=== PATIENT | male | born 1970 | race Caucasian/White ===

== ENCOUNTER 2023-05-10 14:11 | Emergency (ER) | payer MEDICAID, SELFPAY ==
[2023-05-10 14:21] VITALS: BP 138/74
--- NOTE | 2023-05-10 15:56 | ED.SKININJ ---
HPI-Injury
General
Chief Complaint: Skin Surface Trauma
Source: patient
Exam Limitations: none
Time Seen by Provider: 05/10/23 15:05
Nursing documentation reviewed up to this point in time: agreed with
Travel History
Have you had any contact with someone who has COVID-19?: No
Do you have any symptoms of coronavirus? Fever > 100 degrees, chills, cough, shortness of breath, sore throat, loss of taste or smell, muscle aches, or headache?: No
History of Present Illness-Injury
Is this injury a work related problem?: No
Is pt an associate of [facility]?: No
Initial Injury comments:
Accidentally cut self with knife. Laceration to volar aspect of right forearm. 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
Past History
Past History
ED Past Medical History: None
ED Past Surgical History: None
Review of Systems
Review of Systems
Allergies reviewed?: Yes
All Other Systems: ROS reviewed and negative except as documented in HPI and ROS
Constitutional: Reports no symptoms
Musculoskeletal: Reports no symptoms
Skin: Reports other (Laceration to right volar forearm)
Neurological: Reports no symptoms
Psychiatric: Reports no symptoms
Skin Exam
Laceration
Right volar forearm:
Orientation: horizontal
Type of Laceration: simple
Any active bleeding?: no active bleeding
Distal skin color and temperature: normal-warm & good color
Normal distal neurovascular exam: Yes
Range of motion: full
Phy Exam
General Physical Exam
General Presentation: well appearing
General age: appears stated age
General Skin: warm and dry
General Habitus: normal
General Mental: alert
Musculoskeletal Exam
Musculoskeletal Exam: full ROM and neuro vasc intact
Skin Exam
Skin Exam: normal color, warm/dry and no rash
Psychiatric Exam
Psychiatric Exam: normal mood/affect
Course
Orders/Labs/Results
Orders:
Orders
05/10/23 15:56
Tetanus/Diphth/Acelpertussis [Adacel] 0.5 ml IM .ONCE ONE
Vital Signs
Initial and Last Documented VS:
Initial Vital Signs
Temp Pulse Resp BP Pulse Ox
98.9 F 70 16 138/74 98
05/10/23 14:21 05/10/23 14:21 05/10/23 14:21 05/10/23 14:21 05/10/23 14:21
Last Documented Vital Signs
Temp Pulse Resp BP Pulse Ox
98.9 F 70 16 138/74 98
05/10/23 14:21 05/10/23 14:21 05/10/23 14:21 05/10/23 14:21 05/10/23 14:21
Procedures
Laceration Closure
Right volar forearm:
Status of Wound: clean
Size of Wound in cm: 3
Description of Wound Edges: sharp
Preparation: cleaned with saline
Anesthesia: 1% Lidocaine
Revision/Debridement: routine- no revision
Wound exploration: explored to base- no FB
Type of Closure: single layer closure
Skin Closure Material: 4-0 prolene and 4-0 vicryl
*Critical Care Note
Total Time (30-74mins, 75-104mins- exclusive of procedures): Not Applicable
ED Attending Note
-
Portions of this chart may have been created with voice recognition software.� Occasional wrong word or��sound alike� substitutions may have occurred due to the inherent limitations of voice recognition software.
Discharge Plan
Departure
Patient Disposition: Home (Routine Discharge)
Date of Disposition: 05/10/23
Time of Disposition: 16:00
Patient with high blood pressure during this ER visit?: No
Condition: Good
Covid-19: Not Applicable
Discharge Problem:
Laceration of forearm
Instructions: Laceration Repair With Stitches (DC)
Referrals:
Anthony Barcenas MD [Family Provider] - Follow up in 1 week (Sutures can be removed in 7-10 days.)
Interventions
Interventions:
*Risk Screen - Suicide Last Done: 05/10/23 14:21
*General Assessment Last Done: 05/10/23 14:21
*Neglect/Abuse Screening Last Done: 05/10/23 14:21
ED- Fall Risk Assessment Last Done: 05/10/23 14:56
ED-Skin Assessment Last Done: 05/10/23 14:56
[2023-05-10] MEDS: ADACEL 0.5 ML IM (16:02)
[2023-05-10 16:26] VITALS: BP 119/72
[2023-05-10 16:27] VITALS: BP 119/72
--- NOTE | 2023-05-10 16:27 | EDRN ---
Reviewed discharge instructions with patient. Verbalized understanding. Ambulated with steady gait to the lobby.
== END 2023-05-10 16:25 | disposition home or self-care (01) ==
LOC: EMR 14:11
PROVIDERS: EMERGENCY PHYSICIAN Emergency Medicine; FAMILY PHYSICIAN Family Medicine
DX: S51.811A Laceration without foreign body of right forearm, initial encounter (principal); W26.0XXA Contact with knife, initial encounter; Z23 Encounter for immunization
CPT/HCPCS: 99284; 12032; 90471; 90715

== ENCOUNTER 2023-06-17 16:27 | Inpatient (IN) | payer MEDICAID, SELFPAY ==
[2023-06-17] VITALS (16 sets, daily range): BP systolic 108–136; BP diastolic 63–81; BMI 23.0; BMI 21.8
[2023-06-17 13:45] LABS: % Basophils 0.1 % (0-2); % Immature Granulocytes 0.8 % (0-0.5); % Lymphocytes 27.2 % (20.5-51.1); % Monocytes 9.2 % (1.7-9.3); % Neutrophils 62.7 % (42.2-75.2); Absolute Immature Granulocytes 0.1 10^3/uL (0-0.05); Absolute Monocytes 0.7 10^3/uL (0.1-0.6); Absolute Neutrophils 4.7 10^3/uL (1.4-6.5); Mean Corp Hgb Conc. 36.6 g/dL (33.0-37.0); Mean Corpuscular Hgb 30.6 pg (27.0-31.0); Mean Corpuscular Volume 83.4 fL (80.0-94.0); Mean Platelet Volume 12.4 fL (7.4-10.4); Nucleated Red Blood Cells % 0 % (-); Red Blood Cell Count 1.93 10^6/uL (4.70-6.10); Red Cell Dist. Width 12.7 % (11.5-14.5); White Blood Cell Count 7.4 10^3/uL (4.8-10.8)
[2023-06-17 13:54] LABS: ALT (SGPT) 46 U/L (0-50); AST (SGOT) 30 U/L (17-59); Albumin 4.2 g/dl (3.5-5.0); Alkaline Phosphatase 107 U/L (38-126); Blood Urea Nitrogen 34 mg/dl (9-20); Calcium 8.9 mg/dl (8.4-10.2); Carbon Dioxide 18 mmol/L (22-30); Chloride 100 mmol/L (98-107); Glucose 150 mg/dl (70-99); Sodium 132 mmol/L (135-145); Total Bilirubin 1.8 mg/dl (0.2-1.3); Total Protein 7.4 g/dl (6.3-8.2); eGFR > 60.00
[2023-06-17 13:57] LABS: Hemoglobin 5.9 g/dL (13.0-18.0)
[2023-06-17 13:58] LABS: Hematocrit 16.1 % (39.0-52.0); Platelet Count 7 10^3/uL (130-400)
[2023-06-17 13:59] LABS: Potassium 4.4 mmol/L (3.5-5.1)
[2023-06-17 14:06] LABS: Troponin I < 0.012 ng/ml
--- NOTE | 2023-06-17 15:11 | ED.GENMED ---
History of Present Illness
<Timothy Becerra PA-C - Last Filed: 06/17/23 18:37>
General
Chief Complaint: Breathing Problem
Time Seen by Provider: 06/17/23 14:05
Travel History
Have you had any contact with someone who has COVID-19?: No
Do you have any symptoms of coronavirus? Fever > 100 degrees, chills, cough, shortness of breath, sore throat, loss of taste or smell, muscle aches, or headache?: No
History of Present Illness
History of Present Illness:
53-year-old male presents the emergency department for evaluation of shortness of breath, dyspnea on exertion, and fatigue ongoing for the past week. 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
past 1 to 2 months but really severe in the past week. He did have some nausea and vomiting this morning. 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 He denies any
back or abdominal pain, has any fevers but does feel cold all the time. No chest pain or shortness of breath. Denies any recent international travel, recent febrile illnesses, or recent tick bites.
Past History
<Timothy Becerra PA-C - Last Filed: 06/17/23 18:37>
Past History
ED Past Medical History: None
ED Past Surgical History: None
Review of Systems
<Timothy Becerra PA-C - Last Filed: 06/17/23 18:37>
Review of Systems
Allergies reviewed?: Yes
All Other Systems: ROS reviewed and negative except as documented in HPI and ROS
Phy Exam
<Timothy Becerra PA-C - Last Filed: 06/17/23 18:37>
Physical Exam
Physical Exam:
GEN: Markedly pale, no immediate distress
Eyes: PERRLA, EOMs intact, no scleral icterus
HENT: NCAT, oral mucosa moist, no JVD, no cervical adenopathy.
Lungs: CTAB, no wheezes, rales, rhonchi, normal chest wall excursion
Cardiac: RRR, no M/R/G, no peripheral edema. Radial pulses 2+ bilat
Abdomen: S, NT, ND, NABS, no masses or hepatosplenomegaly
: Brown stool in the rectal vault, weakly heme positive
Neuro: AO x 3
MSK: No gross deformity or ecchymosis. No edema. No digital clubbing
Skin: Diffuse pallor. Few petechial lesions to bilateral cheeks as well as bilateral scapular back
Psych: Calm, cooperative, proper hygiene
Scores
<Timothy Becerra PA-C - Last Filed: 06/17/23 18:37>
Heart Failure Risk
Heart Failure Risk Score: Not Applicable
Course
<Timothy Becerra PA-C - Last Filed: 06/17/23 18:37>
Orders/Labs/Results
Orders:
Orders
06/17/23 Breakfast
Regular
At Your Request: Full Participation
06/17/23 13:26
Electrocardiogram (*1) Urgent
Reason for Study: Shortness of Breath
06/17/23 13:32
Complete Blood Count/With Diff Urgent
Comprehensive Metabolic Panel Urgent
Direct Bilirubin Urgent
Comment: ADD ON
Ferritin Urgent
Comment: ADD ON
Folate Urgent
Comment: ADD ON
Iron Urgent
Comment: ADD ON
LDH Urgent
Comment: ADD ON
Reticulocyte Count Urgent
Comment: ADD ON
Total Iron Binding Urgent
Comment: ADD ON
Troponin I Urgent
Vitamin B12 Urgent
Comment: ADD ON
06/17/23 14:20
Type+Screen Urgent
06/17/23 14:51
PT/INR [Prothrombin Time] Urgent
PTT Urgent
06/17/23 14:54
Blood Bank Products [* Blood Bank Products] Urgent
Blood Bank Products: *Packed RBC Leuko(PRBC's)
Quantity: 2
Transfuse Today: Yes
Reason: Anemia
06/17/23 15:31
Pantoprazole [Protonix IV] 40 mg IV NOW STA
06/17/23 15:32
Add On- LAB Urgent
Tests Added?: iron, TIBC, ferritin
06/17/23 15:36
CR Chest - 2 Views Urgent
Comment:
Reason For Exam: SOB
06/17/23 15:37
Add On- LAB Urgent
Tests Added?: iron, ferritin, tibc, folate, vit b12
Blood Bank Products [* Blood Bank Products] Urgent
Blood Bank Products: *Plt Single Donor Leuko
Quantity: 1
Transfuse Today: Yes
Reason: Thrombocytopenia
06/17/23 15:44
Add On- LAB Urgent
Tests Added?: LDH, retic count
06/17/23 16:03
Admit/Transfer Patient As Directed
Co-Sign Provider:
Level of Care: Inpatient admission
Assign to:: Telemetry
Physician / Group: Jose M
Diagnosis: Anemia/Thrombocytopenia
Reason for Telemetry: Arrhythmia
Date to Stop Telemetry: 06/20/23
Time to Stop Telemetry: 11:00
Reason for Hospitalization: blood transfusion, hematology work-up
Expected length of stay greater than two midnights?: Yes
ELOS- Estimated Length of Stay in days: 3
I certify the patient meets the requirements for IP care: Yes
06/17/23 16:09
Code Status As Directed
Resuscitation Status: Full Code
06/17/23 16:12
Add On- LAB Urgent
Tests Added?: haptoglobin
06/17/23 16:23
Add On- LAB Urgent
Tests Added?: direct and indirect bilirubin
06/17/23 17:00
Acetaminophen [Tylenol] 650 mg PO Q4HPRN PRN
06/17/23 17:00
HEMATOLOGY CONSULT Routine
Consulting Provider: Mary Bahena
Was physician already notified: Yes
Activity As Directed
Activity Level: Out of Bed- Chair
I&O [Intake/ Output] As Directed
Frequency: q12h
Pneumatic Compression Sleeves As Directed
Type: Knee high
Vital Signs As Directed
Frequency: Per unit guidelines
Weight As Directed
Frequency: Daily
DX Deep Vein Thrombosis Video Routine
06/18/23 06:00
Complete Blood Count/With Diff IN AM
Comprehensive Metabolic Panel IN AM
INR [Prothrombin Time] IN AM
Magnesium IN AM
TSH Reflex To Free T4 IN AM
06/18/23 08:00
Pantoprazole [Protonix] 40 mg PO DAILY
06/20/23 11:00
DC Protocol for Telemetry ONCE
Abnormal Lab Results
06/17/23 06/17/23 06/17/23
13:32 14:20 14:51
RBC 1.93 L 10^6/uL
(4.70-6.10)
Hgb 5.9 L* g/dL
(13.0-18.0)
Hct 16.1 L* %
(39.0-52.0)
Plt Count 7 L* 10^3/uL
(130-400)
MPV 12.4 H fL
(7.4-10.4)
Abs Immat Gran (auto) 0.1 H 10^3/uL
(0-0.05)
Absolute Monos (auto) 0.7 H 10^3/uL
(0.1-0.6)
Immature Gran % 0.8 H %
(0-0.5)
PT 17.0 H Sec
(11.4-14.6)
APTT 37.1 H Sec
(23.4-35.0)
Sodium 132 L mmol/L
(135-145)
Carbon Dioxide 18 L mmol/L
(22-30)
BUN 34 H mg/dl
(9-20)
Creatinine 1.4 H mg/dL
(0.7-1.3)
Glucose 150 H mg/dl
(70-99)
TIBC 188 L ug/dl
(261-462)
Total Bilirubin 1.8 H mg/dl
(0.2-1.3)
Lactate Dehydrogenase 368 H U/L
(120-246)
Crossmatch IS Only See Detail
06/17/23 13:32
06/17/23 13:32
Vital Signs
Initial and Last Documented VS:
Initial Vital Signs
Temp Pulse Resp BP Pulse Ox
97.6 F 107 18 120/81 100
06/17/23 13:21 06/17/23 13:21 06/17/23 13:21 06/17/23 13:21 06/17/23 13:21
Last Documented Vital Signs
Temp Pulse Resp BP Pulse Ox
99.1 F 78 18 108/71 100
06/17/23 19:02 06/17/23 19:02 06/17/23 19:02 06/17/23 19:02 06/17/23 16:59
<Chavez Garcia DO - Last Filed: 06/17/23 19:43>
Orders/Labs/Results
Orders:
Orders
06/17/23 Breakfast
Regular
At Your Request: Full Participation
06/17/23 13:26
Electrocardiogram (*1) Urgent
Reason for Study: Shortness of Breath
06/17/23 13:32
Complete Blood Count/With Diff Urgent
Comprehensive Metabolic Panel Urgent
Direct Bilirubin Urgent
Comment: ADD ON
Ferritin Urgent
Comment: ADD ON
Folate Urgent
Comment: ADD ON
Iron Urgent
Comment: ADD ON
LDH Urgent
Comment: ADD ON
Reticulocyte Count Urgent
Comment: ADD ON
Total Iron Binding Urgent
Comment: ADD ON
Troponin I Urgent
Vitamin B12 Urgent
Comment: ADD ON
06/17/23 14:20
Type+Screen Urgent
06/17/23 14:51
PT/INR [Prothrombin Time] Urgent
PTT Urgent
06/17/23 14:54
Blood Bank Products [* Blood Bank Products] Urgent
Blood Bank Products: *Packed RBC Leuko(PRBC's)
Quantity: 2
Transfuse Today: Yes
Reason: Anemia
06/17/23 15:31
Pantoprazole [Protonix IV] 40 mg IV NOW STA
06/17/23 15:32
Add On- LAB Urgent
Tests Added?: iron, TIBC, ferritin
06/17/23 15:36
CR Chest - 2 Views Urgent
Comment:
Reason For Exam: SOB
06/17/23 15:37
Add On- LAB Urgent
Tests Added?: iron, ferritin, tibc, folate, vit b12
Blood Bank Products [* Blood Bank Products] Urgent
Blood Bank Products: *Plt Single Donor Leuko
Quantity: 1
Transfuse Today: Yes
Reason: Thrombocytopenia
06/17/23 15:44
Add On- LAB Urgent
Tests Added?: LDH, retic count
06/17/23 16:03
Admit/Transfer Patient As Directed
Co-Sign Provider:
Level of Care: Inpatient admission
Assign to:: Telemetry
Physician / Group: Jose M
Diagnosis: Anemia/Thrombocytopenia
Reason for Telemetry: Arrhythmia
Date to Stop Telemetry: 06/20/23
Time to Stop Telemetry: 11:00
Reason for Hospitalization: blood transfusion, hematology work-up
Expected length of stay greater than two midnights?: Yes
ELOS- Estimated Length of Stay in days: 3
I certify the patient meets the requirements for IP care: Yes
06/17/23 16:09
Code Status As Directed
Resuscitation Status: Full Code
06/17/23 16:12
Add On- LAB Urgent
Tests Added?: haptoglobin
06/17/23 16:23
Add On- LAB Urgent
Tests Added?: direct and indirect bilirubin
06/17/23 17:00
Acetaminophen [Tylenol] 650 mg PO Q4HPRN PRN
06/17/23 17:00
HEMATOLOGY CONSULT Routine
Consulting Provider: Mary Bahena
Was physician already notified: Yes
Activity As Directed
Activity Level: Out of Bed- Chair
I&O [Intake/ Output] As Directed
Frequency: q12h
Pneumatic Compression Sleeves As Directed
Type: Knee high
Vital Signs As Directed
Frequency: Per unit guidelines
Weight As Directed
Frequency: Daily
DX Deep Vein Thrombosis Video Routine
06/18/23 06:00
Complete Blood Count/With Diff IN AM
Comprehensive Metabolic Panel IN AM
INR [Prothrombin Time] IN AM
Magnesium IN AM
TSH Reflex To Free T4 IN AM
06/18/23 08:00
Pantoprazole [Protonix] 40 mg PO DAILY
06/20/23 11:00
DC Protocol for Telemetry ONCE
Abnormal Lab Results
06/17/23 06/17/23 06/17/23
13:32 14:20 14:51
RBC 1.93 L 10^6/uL
(4.70-6.10)
Hgb 5.9 L* g/dL
(13.0-18.0)
Hct 16.1 L* %
(39.0-52.0)
Plt Count 7 L* 10^3/uL
(130-400)
MPV 12.4 H fL
(7.4-10.4)
Abs Immat Gran (auto) 0.1 H 10^3/uL
(0-0.05)
Absolute Monos (auto) 0.7 H 10^3/uL
(0.1-0.6)
Immature Gran % 0.8 H %
(0-0.5)
PT 17.0 H Sec
(11.4-14.6)
APTT 37.1 H Sec
(23.4-35.0)
Sodium 132 L mmol/L
(135-145)
Carbon Dioxide 18 L mmol/L
(22-30)
BUN 34 H mg/dl
(9-20)
Creatinine 1.4 H mg/dL
(0.7-1.3)
Glucose 150 H mg/dl
(70-99)
TIBC 188 L ug/dl
(261-462)
Total Bilirubin 1.8 H mg/dl
(0.2-1.3)
Lactate Dehydrogenase 368 H U/L
(120-246)
Crossmatch IS Only See Detail
06/17/23 13:32
06/17/23 13:32
Vital Signs
Initial and Last Documented VS:
Initial Vital Signs
Temp Pulse Resp BP Pulse Ox
97.6 F 107 18 120/81 100
06/17/23 13:21 06/17/23 13:21 06/17/23 13:21 06/17/23 13:21 06/17/23 13:21
Last Documented Vital Signs
Temp Pulse Resp BP Pulse Ox
99.1 F 78 18 108/71 100
06/17/23 19:02 06/17/23 19:02 06/17/23 19:02 06/17/23 19:02 06/17/23 16:59
<Timothy Becerra PA-C - Last Filed: 06/17/23 18:37>
MDM/Problems Addressed
MDM/Problems Addressed:
Unclear etiology to anemia and thrombocytopenia. Certainly would consider acute hemolytic source such as ITP or TTP however the patient's T. bili is not substantially elevated, LDH is only minimally elevated and reticulocyte count is normal.
Patient does not have significant palpable splenomegaly. Tickborne illness is possible given his occupation. Certainly could be blood loss anemia but is weakly positive on the test with brown stool makes this less likely. Will admit the patient
to the hospitalist service, with oncology consultation requested urgently. PRBCs and platelet transfusion ordered
<Timothy Becerra PA-C - Last Filed: 06/17/23 18:37>
*Critical Care Note
Total Time (30-74mins, 75-104mins- exclusive of procedures): 40 minutes
comment:
Critical care time: 40 minutes
Critical care time was exclusive of: Separately billable procedures, treating other patients, and teaching time
Critical care was necessary to treat or prevent imminent or life-threatening deterioration of the following conditions: Acute anemia/thrombocytopenia
Critical care time spent personally by me on the following activities:
[x] Review of old charts
[x] Obtaining history from patient or surrogate
[x] Ordering and review of the laboratory studies
[x] Ordering and review of radiographic studies
[x] Ordering and performing treatments and interventions
[x] Patient patient's response to treatment
[x] Development of treatment plan with patient or surrogate
ED Attending Note
<Timothy Becerra PA-C - Last Filed: 06/17/23 18:37>
-
Portions of this chart may have been created with voice recognition software.� Occasional wrong word or��sound alike� substitutions may have occurred due to the inherent limitations of voice recognition software.
<Chavez Garcia DO - Last Filed: 06/17/23 19:43>
ED Attending Note
Patient seen and examined by attending physician: Yes
I performed the substantive portion of visit, reviewed & personally made and approve the management plan that is documented in note by myself or TONY.: Yes
ED Attending Note:
53-year-old male presents with progressive dyspnea on exertion and shortness of breath. Found to be significantly anemic and thrombocytopenic. Considerations are hemolytic process/TTP/HUS. Reticulocyte count normal. Does have a mild bump in
coagulation studies as well. Plan will be for transfusion given platelets are less than 10,000, and transfusion of packed red cells. Consult hematology. Admit
Discharge Plan
Departure
Patient Disposition: Admit
Date of Disposition: 06/17/23
Time of Disposition: 15:32
Admit to: Med/Surg
Presentation/result/management discussed w/ accepting MD/DO: Hospitalist
Discharge Problem:
Acute anemia
Interventions
Interventions:
*Risk Screen - Suicide Last Done: 06/17/23 13:21
*General Assessment Last Done: 06/17/23 13:21
*Neglect/Abuse Screening Last Done: 06/17/23 13:21
ED- Fall Risk Assessment Last Done: 06/17/23 14:29
*ED COVID-19 Vaccine History Last Done: 06/17/23 17:02
*Nursing Disposition Last Done: 06/17/23 16:42
ED- Cardiac Assessment Last Done: 06/17/23 14:29
ED- Pulmonary Assessment Last Done: 06/17/23 14:29
Discharge Date and Time
Discharge Date/Time: 06/17/23 16:45
[2023-06-17 15:23] LABS: APTT 37.1 Sec (23.4-35.0)
[2023-06-17] MEDS: PROTONIX IV 40 MG IV (15:39)
[2023-06-17 15:56] LABS: Reticulocyte Count 0.4 % (0.4-2.8)
[2023-06-17 16:07] LABS: Iron 76 ug/dl (49-181); LDH 368 U/L (120-246)
--- NOTE | 2023-06-17 16:12 | HPS.HSE ---
Addendum entered and electronically signed by Gaurang Lozano MD 06/17/23 16:28:
I saw and examined the patient.
The SHAKE TABLE OPERATOR or PA's note was reviewed and I agree with the note.
Comment:
53 y/o M who p/w CC SOB/ANTON.
120/81, 107, 18, 97.6 F, 100% RA
NAD, awake and alert
pale
RRR, normal S1/S2
+BS/soft/NT/ND/no organomegaly
WBC 7.4, Hb 5.9, plt 7
Cr 1.4, Na 132
Anemia/Thrombocytopenia:
-normal MCV
-check Fe/TIBC/ferritin/folate/B12/retic ct/LDH/Haptoglobin
-transfuse pRBCs/plts
-c/s heme
Original Note:
Family Physician
-
Family Physician: Anthony Barcenas
Chief Complaint
-
Shortness of Breath
History of Present Illness
Patient is a 53 y/o male who presented the ED today complaining of worsening shortness of breath over the past week. He also complains of fatigue and weakness over the past month or so. He denies chest pain, palpitations, fever, black or bloody
stool, or gingival bleeding. 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 He was here in May for laceration repair which he says did not bleed excessively. He admits to smoking
1 [id number] cigarettes since age 17 but quit smoking on June 10 because of his worsening symptoms, he thought they might be smoking related. He denies any significant past medical history.
Medical History
Past Medical History
Past Medical History: Reports None
Past Surgical History: Reports Other
Additional Past Surgical History:
Right Shoulder Basal Cell Resection
Social History
Tobacco: Smoker (1ppd since age 17 - Notes stopped smoking recently due to feeling poorly)
Alcohol: Occasional (About 5 drinks per month)
Drug: None
Family History
Family History: Not pertinent
Allergies / Home Medications
Allergies reflects when Allergies were last updated in [email or web address].
Home Medications with original date entered in [email or web address]
Allergy/Medication List:
Allergies
Allergy/AdvReac Type Severity Reaction Status Date / Time
epinephrine Allergy Unknown Verified 06/17/23 13:21
procaine [From Novocain] Allergy Rash Verified 06/17/23 13:21
Home Medications
No Meds [No Current Medications] 06/17/23
Review of Systems
-
A 12 point ROS was completed and negative except as noted: Yes
Constitutional: Denies Fever
Respiratory: Reports Trouble Breathing; Denies Cough
Cardiac: Denies Chest Pain or Palpitations
Abdomen/GI: Denies Nausea, Vomiting, Diarrhea, Bloody Stools or Black Stools
: Denies Bleeding
Skin: Denies Rash
Hematologic/Lymphatic: Denies Bleeding or Bruising
Physical Exam
Vital Signs
Vital Signs
Temp Pulse Resp BP Pulse Ox
98.2 F 91 16 131/73 100
06/17/23 15:55 06/17/23 15:55 06/17/23 15:55 06/17/23 15:55 06/17/23 15:55
Physical Exam
General: Comfortable, Conversant and Other (Appears pale with poor skin color)
HEENT: NormoCephalic and Atraumatic
Respiratory: Clear and Non Labored Respirations
Cardiac: S1/S2 and Regular Rhythm; No Murmur
GI: Soft, Non Tender and No Hepatosplenomegaly
Musculoskeletal: No Clubbing, No Cyanosis and No Edema
Skin: Warm, Dry, Jaundice (Slightly) and Other (Few petechiae noted in right posterior shoulder, and right upper quadrant on abdomen)
Neuro: Awake, Alert, Oriented and Nonfocal/grossly intact
Laboratory Results
-
06/17/23 13:32
06/17/23 13:32
Laboratory Results
PT 17.0 Sec (11.4-14.6) H 06/17/23 14:51
INR 1.40 06/17/23 14:51
APTT 37.1 Sec (23.4-35.0) H 06/17/23 14:51
Total Bilirubin 1.8 mg/dl (0.2-1.3) H 06/17/23 13:32
AST 30 U/L (17-59) 06/17/23 13:32
ALT 46 U/L (0-50) 06/17/23 13:32
Alkaline Phosphatase 107 U/L (38-126) 06/17/23 13:32
Troponin I < 0.012 ng/ml 06/17/23 13:32
Data Reviewed
-
Lab Data: Labs Reviewed by me
Impression/Plan
-
Anemia/Thrombocytopenia
-Consult Hematology
-Transfuse PRBCs and Platelets
-Check iron studies, vitamin b12, folate, LDH, Retic Count and Haptoglobin
-Monitor for bleeding
Acute Kidney Injury, likely related to volume depletion due to severe anemia
-Suspect creatinine will improve following blood transfusion
-Recheck creatinine in AM
Elevated Bilirubin, possibly related to hemolysis
-Fractionate Bilirubin
Hyponatremia, mild, likely volume depletion
-Recheck sodium in AM
DVT proph: SCDs
Code Status: Full Code
[2023-06-17 16:16] LABS: Percent Saturation 40 % (20-50); Total Iron Binding Capacity 188 ug/dl (261-462)
--- NOTE | 2023-06-17 17:22 | TRANSFER ---
Pt admitted from ED to room 418-2, Baylee at bedside. AAOx3. PRBC infusing. Temperature 100.2, MD Lozano made aware. Pt with no complaints at this time. Call connor within reach.
[2023-06-17 17:37] LABS: Folate 14.4 ng/ml (2.76-20); Vitamin B12 379 pg/ml (239-931)
--- NOTE | 2023-06-17 17:37 | CON.ONC ---
Impression
Impression
- Severe thrombocytopenia
- Normocytic Anemia
- Weight loss, night sweats
- hx of tobacco use
Plan
Plan
- pt presenting with severe normocytic anemia with hgb 5.9 g/dl, severe thrombocytopenia w/ plts 7K. No prior for comparison (states never had labs prior). Symptoms of ANTON, increased fatigue, 10 lb weight loss, night sweats.
- B12, folate, iron stores normal. denies bleeding symptoms. stool hemoccult ordered.
- T bili mildly elevated at 1.8, LDH mildly high. hapto, direct bili pending however low suspicion for acute hemolytic process w/ retic 0.4%.
- Personally reviewed smear, no significantly increased schistocytes, spherocytes, no tear drop cells noted. some large plts noted. PT, PTT also mildly elevated which is less consistent with TTP/HUS process. check d-dimer, fibrinogen. PLASMIC score
however = 5, intermediate risk for TTP. I will send ADAMTS-13 activity level however do not feel urgent plasma exchange indicated at this time. monitor closely.
- check anti-platelet antibodies, direct.
- recommend CT C/A/P with contrast to assess for occult malignancy/lymphoma. Will hold off ordering right now with Cr 1.4 however if down trending with IV fluids, pRBCs rec ordering.
- CBC at least daily. transfuse for hgb < 7.0 g/dl, plts < 10K if no bleeding ( limit excess transfusions while ruling out TMA process).
Patient History
History of Present Illness
Patient is a 53 y/o male w/ no chronic medical conditions who presented the ED complaining of worsening shortness of breath that may have started in mid May however worsening over past week. He also complained of fatigue and weakness over the past
month or so, intermittent night sweats past 2 weeks. He notes ~ 10 lb weight loss however cannot recall time frame. He denies chest pain, palpitations, fever, black or bloody stool, epistaxis or gingival bleeding. Labs notable for plt 7K, hgb 5.9
w/ normal MCV, WBC 7.4 w/ AIG 0.1, Na 132, Cr 1.4, T bili 1.8 w/ nml AST, ALT, ALP. LDH mildly high at 368, w/ retic count 0.4%. B12, folate, ferritin, IS normal. Mild elevation in PT 17, PTT 37.1. Denies preceding viral illness, new medications (no
home meds), travel. Denies family hx of hematological disorders. Family hx of brain cancer in grandfather in his 70s. He admits to smoking 1 [id number] cigarettes since age 17 but quit smoking on June 10 because of his worsening symptoms, he
thought they might be smoking related.�
Past-Medical/Surgical History
- basal cell carcinoma of right shoulder s/p resection
Patient Medication
Medication Instructions Recorded Confirmed Last Taken Type
No Meds [No Current Medications] 06/17/23 06/17/23 Unknown History
Active Medications
Generic Name Dose Route Start Last Admin
Trade Name Freq PRN Reason Stop Dose Admin
Acetaminophen 650 mg 06/17/23 17:00
Acetaminophen 325 Mg Tablet PO 07/15/23 16:59
Q4HPRN PRN
mild pain/ fever>100.5F
Pantoprazole Sodium 40 mg 06/18/23 08:00
Pantoprazole 40 Mg Delayed Release Tablet PO 07/16/23 07:59
DAILY RICH
Sodium Chloride 0 flush 06/17/23 18:00
Sodium Chloride 0.9% (Flush) Syringe IV 07/15/23 17:59
PER PROTOCOL RICH
Review of Systems
-
History Source: Patient
Constitutional: Reports Weight Loss, No Appetite, Fatigue, Night Sweats and Weakness; Denies Fever
EENT: Denies Sore Throat, Mouth Pain or Bloody Nose
Respiratory: Reports Trouble Breathing; Denies Cough
Cardiac: Denies Chest Pain
GI: Reports Anorexia; Denies Nausea, Diarrhea, Bloody Stools or Black Stools
: Denies Bleeding or Dark Urine
Musculoskeletal: Denies Joint Pain or Arthralgias
Skin: Denies Itching or Rash
Neuro: Reports Weakness and Numbness; Denies Dizzy or Headache
Hematologic/Lymphatic: Denies Bleeding or Bruising
Physical Exam
-
General: Well Developed, Well Nourished and No Apparent Distress
HEENT: Moist Mucous Membranes; Negative Jaundice
Cardiology: Normal Sinus Rhythm
Pulmonary: Clear; Negative Wheezes
GI: Soft; Negative Distended
Musculoskeletal: No Cyanosis and No Edema
Extremities: Negative Edema
Neurology: Non Focal
Skin: No Ecchymosis
Hematologic / Lymphatic: Lymphadenopathy and No Petechiae
Labs
Lab Results
WBC 7.4 10^3/uL (4.8-10.8) 06/17/23 13:32
RBC 1.93 10^6/uL (4.70-6.10) L 06/17/23 13:32
Hgb 5.9 g/dL (13.0-18.0) L* 06/17/23 13:32
Hct 16.1 % (39.0-52.0) L* 06/17/23 13:32
MCV 83.4 fL (80.0-94.0) 06/17/23 13:32
MCH 30.6 pg (27.0-31.0) 06/17/23 13:32
MCHC 36.6 g/dL (33.0-37.0) 06/17/23 13:32
RDW 12.7 % (11.5-14.5) 06/17/23 13:32
Plt Count 7 10^3/uL (130-400) L* 06/17/23 13:32
MPV 12.4 fL (7.4-10.4) H 06/17/23 13:32
Abs Immat Gran (auto) 0.1 10^3/uL (0-0.05) H 06/17/23 13:32
Absolute Neuts (auto) 4.7 10^3/uL (1.4-6.5) 06/17/23 13:32
Absolute Lymphs (auto) 2.0 10^3/uL (1.2-3.4) 06/17/23 13:32
Absolute Monos (auto) 0.7 10^3/uL (0.1-0.6) H 06/17/23 13:32
Absolute Eos (auto) 0.0 10^3/uL (0-0.7) 06/17/23 13:32
Absolute Basos (auto) 0.0 10^3/uL (0-0.2) 06/17/23 13:32
Immature Gran % 0.8 % (0-0.5) H 06/17/23 13:32
Neutrophils % 62.7 % (42.2-75.2) 06/17/23 13:32
Lymphocytes % 27.2 % (20.5-51.1) 06/17/23 13:32
Monocytes % 9.2 % (1.7-9.3) 06/17/23 13:32
Eosinophils % 0.0 % (0-6) 06/17/23 13:32
Basophils % 0.1 % (0-2) 06/17/23 13:32
Creatinine 1.4 mg/dL (0.7-1.3) H 06/17/23 13:32
Vital Signs
Vital Signs
Temp Pulse Resp BP Pulse Ox
100.2 F 85 18 121/70 100
06/17/23 16:59 06/17/23 16:59 06/17/23 16:59 06/17/23 16:59 06/17/23 16:59
[2023-06-17 18:18] LABS: Direct Bilirubin 0.2 mg/dl (0.0-0.4)
[2023-06-17] MEDS: TYLENOL 650 MG PO (22:48)
[2023-06-18] VITALS (8 sets, daily range): BP systolic 110–148; BP diastolic 64–79; BMI 21.8
[2023-06-18 07:49] LABS: Fibrinogen 327 MG/DL (199-459); INR 1.35; PT 16.5 Sec (11.4-14.6)
[2023-06-18 07:52] LABS: D-Dimer 0.72 ug/mlFEU (0.00-0.50)
[2023-06-18 08:04] LABS: ALT (SGPT) 42 U/L (0-50); AST (SGOT) 27 U/L (17-59); Albumin 3.5 g/dl (3.5-5.0); Alkaline Phosphatase 97 U/L (38-126); Blood Urea Nitrogen 32 mg/dl (9-20); Calcium 8.5 mg/dl (8.4-10.2); Carbon Dioxide 25 mmol/L (22-30); Chloride 103 mmol/L (98-107); Estimated Creatinine Clearance 60 ml/min; Glucose 105 mg/dl (70-99); Magnesium 2.2 mg/dl (1.6-2.3); Potassium 4.2 mmol/L (3.5-5.1); Sodium 135 mmol/L (135-145); Total Protein 6.5 g/dl (6.3-8.2); eGFR > 60.00
--- NOTE | 2023-06-18 08:10 | W.PN.ONC ---
Addendum entered and electronically signed by Serene Ruiz MD 06/18/23 12:58:
Patient seen and examined, agree w/ A&P as below
CT CAP just reported, shows only mild splenomegaly
Low retic count, with adequate substrates, is not suggestive of hemolysis, concerning for bone marrow failure (secondary to acute leukemia, aplasia, infiltration, etc). Rec. BM biopsy to evaluate further
d/w patient, agreeable
d/w Dr. Mccarthy, approved
IR consult placed
Original Note:
Today's Communication / Plan
-
06/17 Hgb 8.5, PLT 14
s/p 2units PRBCs, 1 unit PLTs
Transfuse as needed for Hgb <7, PLT <10
(Limit excess transfusions while ruling out TMA process)
Monitor CBC w/ diff daily
Bleeding precautions
Peripheral smear reviewed by Dr. Bahena 06/16
06/17 Creat improved to 1.1
CT C/A/P w/ contrast ordered for this morning per Dr. Bahena recommendation
Additional labs remain pending: ADAMTS-13, anti-platelet antibodies, direct.
Hemoccult stools
Supportive care
Consider bone marrow biopsy
We will follow.
Impression
Impression
- Severe thrombocytopenia
- Normocytic Anemia
- Weight loss, night sweats
- hx of tobacco use
- Acute ANTON/SOB
- Fatigue/weakness
Subjective/Objective
Subjective/Objective
Patient denies pain or fevers this morning. He is about to begin contrast prep for CT this morning.
Vital Signs:
Vital Signs
Temp Pulse Resp BP Pulse Ox
98.2 F 59 16 137/78 100
06/18/23 03:25 06/18/23 03:25 06/18/23 03:25 06/18/23 03:25 03/19/24 03:25
physical exam
aaox3, pleasant/cooperative
HRR, lungs dim/clear
+bowel sounds
no edema to b/l LE
no evidence of petechial rash or bruising
urine is orange in color in urinal at bedside
Lab Results:
Laboratory Data
WBC 7.4 10^3/uL (4.8-10.8) 06/17/23 13:32
Hgb 5.9 g/dL (13.0-18.0) L* 06/17/23 13:32
Plt Count 7 10^3/uL (130-400) L* 06/17/23 13:32
PT 16.5 Sec (11.4-14.6) H 06/18/23 07:25
INR 1.35 06/18/23 07:25
APTT 37.1 Sec (23.4-35.0) H 06/17/23 14:51
eGFR > 60.00 06/18/23 07:25
Orders
Orders
Orders From Last 24 Hours
06/18/23 08:08
CT Chest/abd/pel W Iv Cont Routine
[2023-06-18 08:18] LABS: % Basophils 0.2 % (0-2); % Eosinophils 0.2 % (0-6); % Immature Granulocytes 0.6 % (0-0.5); % Lymphocytes 36.7 % (20.5-51.1); % Neutrophils 53.3 % (42.2-75.2); Absolute Lymphocytes 2.4 10^3/uL (1.2-3.4); Absolute Monocytes 0.6 10^3/uL (0.1-0.6); Absolute Neutrophils 3.5 10^3/uL (1.4-6.5); Hematocrit 24.5 % (39.0-52.0); Mean Corp Hgb Conc. 34.7 g/dL (33.0-37.0); Mean Corpuscular Hgb 29.5 pg (27.0-31.0); Mean Corpuscular Volume 85.1 fL (80.0-94.0); Mean Platelet Volume 9.8 fL (7.4-10.4); Nucleated Red Blood Cells % 0 % (-); Red Blood Cell Count 2.88 10^6/uL (4.70-6.10); Red Cell Dist. Width 13.6 % (11.5-14.5); White Blood Cell Count 6.6 10^3/uL (4.8-10.8)
[2023-06-18 08:23] LABS: Hemoglobin 8.5 g/dL (13.0-18.0)
[2023-06-18 08:25] LABS: Platelet Count 14 10^3/uL (130-400)
[2023-06-18] MEDS: PROTONIX 40 MG PO (08:26)
[2023-06-18] MEDS: OMNIPAQUE 50 ML PO (08:26)
[2023-06-18 08:32] LABS: TSH Reflex To Free T4 1.39 uIU/ml (0.47-4.68)
[2023-06-18 09:46] LABS: Urine Albumin Negative (Neg - Trace); Urine Bilirubin Negative (Negative); Urine Character Clear (Clear); Urine Color Yellow; Urine Glucose Negative (Negative); Urine Ketone Negative (Negative); Urine Leukocyte Negative (Negative); Urine Nitrite Negative (Negative); Urine Occult Blood 2+ (Negative); Urine Specific Gravity 1.025 (<1.030); Urine Urobilinogen 1+ (Neg - 1+)
[2023-06-18 09:59] LABS: Urine Squamous Cell 0-2 /LPF (Few)
[2023-06-18 10:03] LABS: Urine Hyaline Cast 0-2 /LPF (0-2); Urine White Cell 0-2 /HPF (0-5)
--- NOTE | 2023-06-18 11:18 | W.PN.HOSP.TC ---
Today's Communication/Plan
-
Monitor vitals
See plan
Monitor hemoglobin, platelets
CT chest/abdomen/pelvis
Follow fever curve
Blood cultures
Assessment / Plan
Assessment / Plan
General: Comfortable, Conversant
HEENT: NormoCephalic and Atraumatic
Respiratory: Clear, no wheezing
Cardiac: S1/S2 and Regular Rhythm
GI: Soft, Non Tender
Musculoskeletal: No Edema
Skin: Mild scattered petechiae
Neuro: Awake, Alert, Oriented and Nonfocal/grossly intact
Anemia/Thrombocytopenia
-Hematology following
- s/p PRBCs and Platelets
Hemoglobin now 8.5, platelets 14
Transfuse hemoglobin less than 7, platelet less than 10
Suspect hemolytic anemia; Ahmet TS 13, antiplatelet antibody pending
-Monitor for bleeding
agree with gonzales CT; pending
Fever 06/16
Suspect secondary to transfusion
Check blood culture, UA
Follow fever curve
Acute Kidney Injury, likely related to volume depletion due to severe anemia
-Creatinine slowly improved
Elevated Bilirubin, possibly related to hemolysis
-Fractionate Bilirubin
Hyponatremia, mild, likely volume depletion
-Recheck sodium in AM
DVT proph: SCDs
Code Status: Full Code
I spent a total of 52 minutes with the patient or on the floor. More than 50% of this time involved counseling and coordination of care.
Anticipated Discharge: > 48 hours
Subjective/Interval History
-
Date of Service: June 18, 2023
Denies pain
Objective Data
-
Labs:
Laboratory Results
06/18/23 06/18/23
07:25 07:26
WBC 6.6
Hgb 8.5 L D
Hct 24.5 L
Plt Count 14 L* D
PT 16.5 H
INR 1.35
Sodium 135
Potassium 4.2
Chloride 103
Carbon Dioxide 25
BUN 32 H
Creatinine 1.1
Glucose 105 H
Calcium 8.5
Total Bilirubin 2.0 H
AST 27
ALT 42
Alkaline Phosphatase 97
Vital Signs:
Vital Signs
Temp Pulse Resp BP Pulse Ox
97.9 F 52 16 127/70 100
06/18/23 07:43 06/18/23 07:43 06/18/23 07:43 06/18/23 07:43 06/18/23 08:00
I&O
06/17/23 06/18/23 06/19/23
06:59 06:59 06:59
Intake Total 1506 / 1506
Balance 1506 / 1506
--- NOTE | 2023-06-18 16:23 | CM ---
Reviewed chart, met with patient and his at bedside to obtain information for assessment. Patient stated that he lives with his in a two story split level home with no steps to enter from the outside.
Patient described himself as independent with his ADLs and personal care, dressing and bathing. He ambulates without use of an assistive device. 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
everything.
Patient drives and can get to his appointments and do all his own shopping. Patient's has been driving the past week or two as patient has not felt well.
He has never had VN services.
He has never been to a SNF.
Patient doesn't have a prescription plan or insurance. He uses the Pharmacy in [facility] in [place] to get all of his medications.
[facility] for this [facility].
Patient does not feel that he will have any needs at time of discharge and should be able to return home when stable.
Plan: Case management will continue to follow and assist with discharge planning. Home when cleared.
[2023-06-19] VITALS (8 sets, daily range): BP systolic 116–137; BP diastolic 69–83; BMI 21.7
--- NOTE | 2023-06-19 06:26 | W.PN.ONC2 ---
Today's Communication / Plan
-
CT reviewed with patient. SADIE w mild splenomegaly
For BMBx.
Outpt F/U to review marrow.
Okay for D/C after BMBx
Impression
Impression
- Severe thrombocytopenia
- Normocytic Anemia
- Weight loss, night sweats
- hx of tobacco use
- Acute ANTON/SOB
- Fatigue/weakness
Plan
Plan
- pt presenting with severe normocytic anemia with hgb 5.9 g/dl, severe thrombocytopenia w/ plts 7K. No prior for comparison (states never had labs prior). Symptoms of ANTON, increased fatigue, 10 lb weight loss, night sweats.
- B12, folate, iron stores normal. denies bleeding symptoms. stool hemoccult ordered.
- T bili mildly elevated at 1.8, LDH mildly high. hapto, direct bili pending however low suspicion for acute hemolytic process w/ retic 0.4%.
- Personally reviewed smear, no significantly increased schistocytes, spherocytes, no tear drop cells noted. some large plts noted. PT, PTT also mildly elevated which is less consistent with TTP/HUS process. check d-dimer, fibrinogen. PLASMIC score
however = 5, intermediate risk for TTP. I will send ADAMTS-13 activity level however do not feel urgent plasma exchange indicated at this time. monitor closely.
- check anti-platelet antibodies, direct.
- CT C/A/P with contrast to assess for occult malignancy/lymphoma was negative for malignancy. Mild splenomegaly noted.
- CBC at least daily. transfuse for hgb < 7.0 g/dl, plts < 10K if no bleeding.
Subjective/Objective
Chief Complaint
ACS Heme Onc
Subjective
Overall feeling better. Awaiting BMBx (hopefully today) - approved.
Vital Signs:
Vital Signs
Temp Pulse Resp BP Pulse Ox
98.2 F 61 18 137/69 100
06/19/23 03:38 06/19/23 03:38 06/19/23 03:38 06/19/23 03:38 06/19/23 03:38
Lab Results:
Laboratory Data
WBC 6.6 10^3/uL (4.8-10.8) 06/18/23 07:26
Hgb 8.5 g/dL (13.0-18.0) L D 06/18/23 07:26
Plt Count 14 10^3/uL (130-400) L* D 06/18/23 07:26
PT 16.5 Sec (11.4-14.6) H 06/18/23 07:25
INR 1.35 06/18/23 07:25
APTT 37.1 Sec (23.4-35.0) H 06/17/23 14:51
eGFR > 60.00 06/18/23 07:25
Physical Exam
HEENT: No Jaundice
Cardiology: S1 and S2
Pulmonary: Clear
GI: Soft and Normal Bowel Sounds
Extremities: No C/C/E
[2023-06-19 08:00] LABS: % Basophils 0.2 % (0-2); % Eosinophils 0.2 % (0-6); % Immature Granulocytes 0.6 % (0-0.5); % Lymphocytes 37.1 % (20.5-51.1); % Monocytes 8.2 % (1.7-9.3); % Neutrophils 53.7 % (42.2-75.2); Absolute Monocytes 0.4 10^3/uL (0.1-0.6); Absolute Neutrophils 2.9 10^3/uL (1.4-6.5); Hematocrit 25.1 % (39.0-52.0); Hemoglobin 8.7 g/dL (13.0-18.0); Mean Corp Hgb Conc. 34.7 g/dL (33.0-37.0); Mean Corpuscular Hgb 29.4 pg (27.0-31.0); Mean Corpuscular Volume 84.8 fL (80.0-94.0); Mean Platelet Volume 9.4 fL (7.4-10.4); Nucleated Red Blood Cells % 0.4 % (-); Red Blood Cell Count 2.96 10^6/uL (4.70-6.10); Red Cell Dist. Width 13.5 % (11.5-14.5); White Blood Cell Count 5.4 10^3/uL (4.8-10.8)
[2023-06-19 08:04] LABS: Platelet Count 8 10^3/uL (130-400)
[2023-06-19 08:22] LABS: ALT (SGPT) 47 U/L (0-50); AST (SGOT) 31 U/L (17-59); Albumin 3.6 g/dl (3.5-5.0); Alkaline Phosphatase 104 U/L (38-126); Blood Urea Nitrogen 28 mg/dl (9-20); Calcium 8.6 mg/dl (8.4-10.2); Carbon Dioxide 25 mmol/L (22-30); Chloride 106 mmol/L (98-107); Estimated Creatinine Clearance 55 ml/min; Glucose 102 mg/dl (70-99); Potassium 4.7 mmol/L (3.5-5.1); Sodium 135 mmol/L (135-145); Total Bilirubin 1.7 mg/dl (0.2-1.3); Total Protein 6.7 g/dl (6.3-8.2); eGFR > 60.00
[2023-06-19] MEDS: PROTONIX 40 MG PO (09:28)
--- NOTE | 2023-06-19 11:00 | CM ---
Patient seen bedside with spouse.
Patient aware of case specialist availability should needs arise.
Plan:home with no needs anticipated.
--- NOTE | 2023-06-19 11:07 | W.PN.HOSP.TC ---
Today's Communication/Plan
-
monitor vitals
see plan
Plts still low; 1 bag today
Bone marrow biopsy per IR
monitor hgb
follow fever curve
Assessment / Plan
Assessment / Plan
General: Comfortable, Conversant
HEENT: NormoCephalic and Atraumatic
Respiratory: Clear, no wheezing
Cardiac: S1/S2 and Regular Rhythm
Skin: Mild scattered petechiae
Neuro: Awake, Alert, Oriented and Nonfocal/grossly intact
Anemia/Thrombocytopenia
-Hematology following; plan for bone marrow biopsy; IR consulted
- s/p PRBCs and Platelets
Hemoglobin now 8.7, platelets 8; will transfuse 1 plt today
Transfuse hemoglobin less than 7, platelet less than 10
Suspect hemolytic anemia; Ahmet TS 13, antiplatelet antibody pending
-Monitor for bleeding
CT chest/abdomen/pelvis without any evidence of malignancy. Show splenomegaly, mild subpleural emphysematous changes at both lung apices. 5 mm exophytic cyst at the lower pole of the left kidney
Fever 318
Suspect secondary to transfusion
blood culture NGTD, UA normal
Follow fever curve
Acute Kidney Injury, likely related to volume depletion due to severe anemia
-improving
Elevated Bilirubin, possibly related to hemolysis
-Fractionate Bilirubin
Hyponatremia, mild, likely volume depletion
-Recheck sodium in AM
DVT proph: SCDs
Code Status: Full Code
Anticipated Discharge: 24 - 48 hours
Subjective/Interval History
-
Date of Service: June 19, 2023
denies pain
Objective Data
-
Labs:
Laboratory Results
06/19/23
07:38
WBC 5.4
Hgb 8.7 L
Hct 25.1 L
Plt Count 8 L* D
Sodium 135
Potassium 4.7
Chloride 106
Carbon Dioxide 25
BUN 28 H
Creatinine 1.2
Glucose 102 H
Calcium 8.6
Total Bilirubin 1.7 H
AST 31
ALT 47
Alkaline Phosphatase 104
Vital Signs:
Vital Signs
Temp Pulse Resp BP Pulse Ox
98.5 F 61 20 125/76 99
06/19/23 07:30 06/19/23 07:30 06/19/23 07:30 06/19/23 07:30 06/19/23 07:30
I&O
06/18/23 06/19/23 06/20/23
06:59 06:59 06:59
Intake Total 1506 / 1506 1080 / 1080
Balance 1506 / 1506 1080 / 1080
[2023-06-20] VITALS (11 sets, daily range): BP systolic 69–134; BP diastolic 63–87; BMI 21.6
[2023-06-20] MEDS: PROTONIX 40 MG PO (07:45)
[2023-06-20 08:51] LABS: % Basophils 0.2 % (0-2); % Immature Granulocytes 0.2 % (0-0.5); % Lymphocytes 37.5 % (20.5-51.1); % Monocytes 7.9 % (1.7-9.3); % Neutrophils 54.2 % (42.2-75.2); Absolute Lymphocytes 2.1 10^3/uL (1.2-3.4); Absolute Monocytes 0.4 10^3/uL (0.1-0.6); Hematocrit 24.5 % (39.0-52.0); Hemoglobin 8.4 g/dL (13.0-18.0); Mean Corp Hgb Conc. 34.3 g/dL (33.0-37.0); Mean Corpuscular Hgb 29.4 pg (27.0-31.0); Mean Corpuscular Volume 85.7 fL (80.0-94.0); Nucleated Red Blood Cells % 0 % (-); Red Blood Cell Count 2.86 10^6/uL (4.70-6.10); Red Cell Dist. Width 13.2 % (11.5-14.5); White Blood Cell Count 5.6 10^3/uL (4.8-10.8)
[2023-06-20 08:55] LABS: Platelet Count 8 10^3/uL (130-400)
[2023-06-20 09:55] LABS: ALT (SGPT) 50 U/L (0-50); AST (SGOT) 35 U/L (17-59); Albumin 3.7 g/dl (3.5-5.0); Alkaline Phosphatase 104 U/L (38-126); Blood Urea Nitrogen 26 mg/dl (9-20); Calcium 8.8 mg/dl (8.4-10.2); Carbon Dioxide 24 mmol/L (22-30); Chloride 105 mmol/L (98-107); Estimated Creatinine Clearance 60 ml/min; Glucose 100 mg/dl (70-99); Potassium 4.9 mmol/L (3.5-5.1); Sodium 134 mmol/L (135-145); Total Bilirubin 1.7 mg/dl (0.2-1.3); Total Protein 6.8 g/dl (6.3-8.2); eGFR > 60.00
[2023-06-20] MEDS: ATIVAN 0.5 MG IV (10:12)
[2023-06-20] MEDS: FLUSH (NSS) 1 FLUSH IV (10:13)
[2023-06-20] MEDS: NSS (PRESERVATIVE FREE) 0.25 ML IV (10:14)
--- NOTE | 2023-06-20 11:00 | W.PN.ONC ---
Today's Communication / Plan
-
No significant improvement in platelet count with transfusion at 8K
Proceed with bone marrow biopsy apply direct pressure post procedure given inadequate reticulocyte count
B12, folate, iron stores normal
T bili mildly elevated at 1.7 unchanged, LDH mildly high. hapto, direct bili pending however low suspicion for acute hemolytic process w/ retic 0.4%.
Smear, no significantly increased schistocytes, spherocytes, no tear drop cells and large plts noted. PT, PTT also mildly elevated which is less consistent with TTP/HUS process. check d-dimer, fibrinogen.
PLASMIC score however = 5, intermediate risk for TTP
ADAMTS-13 activity level however do not feel urgent plasma exchange indicated at this time. monitor closely
Anti-platelet antibodies, direct.
CT C/A/P with contrast to assess for occult malignancy/lymphoma was negative for malignancy. Mild splenomegaly noted.
CBC at least daily. transfuse for hgb < 7.0 g/dl, plts < 10K if no bleeding
Impression
Impression
- Severe thrombocytopenia
- Normocytic Anemia
- Weight loss, night sweats
- hx of tobacco use
- Acute ANTON/SOB
- Fatigue/weakness
Subjective/Objective
Subjective/Objective
Patient resting comfortably in bed. Limited exercise capacity due to a sense of dyspnea with exertion. Small amount of epistaxis this morning.
Vital Signs:
Vital Signs
Temp Pulse Resp BP Pulse Ox
98.2 F 71 18 134/87 100
06/20/23 10:26 06/20/23 10:26 06/20/23 10:26 06/20/23 10:26 06/20/23 10:26
HEENT some dried caked blood in the right nares
Heart regular without murmurs
Lungs clear without rales or rhonchi
Extremities without pretibial edema or palpable cord
Lab Results:
Laboratory Data
WBC 5.6 10^3/uL (4.8-10.8) 06/20/23 08:05
Hgb 8.4 g/dL (13.0-18.0) L 06/20/23 08:05
Plt Count 8 10^3/uL (130-400) L* 06/20/23 08:05
PT 16.5 Sec (11.4-14.6) H 06/18/23 07:25
INR 1.35 06/18/23 07:25
APTT 37.1 Sec (23.4-35.0) H 06/17/23 14:51
eGFR > 60.00 06/20/23 08:05
--- NOTE | 2023-06-20 12:02 | CM ---
Patient s/p BMBX today.
Continue to monitor labs.
Plan: home no needs anticipated.
--- NOTE | 2023-06-20 12:38 | W.PN.HOSP.TC ---
Today's Communication/Plan
-
see bold
Assessment / Plan
Assessment / Plan
Gen: NAD, AAOx3.
Eyes: EOMI, PERRLA, no scleral icterus.
Neck: supple.
CV: RRR, +S1/S2, no m/r/g.
Resp: CTAB, no rales, wheezes, or rhonchi.
Abd: +BS, soft, NT, ND
Skin: No rashes.
Neuro: CN 2-12 intact, non-focal.
Psych: Normal mood and affect.
06/18/23 08:26 Blood/Venous Blood Culture - Preliminary
No Growth in 48 hours- Final report to follow
06/18/23 08:08 Blood/Venous Blood Culture - Preliminary
No Growth in 48 hours- Final report to follow
CT C/A/P: No evidence of malignancy, metastasis or adenopathy in the chest abdomen or pelvis. Splenomegaly with splenic length of 14.5 cm. Mild subpleural emphysematous changes at both lung apices. 5mm exophytic cyst at the lower pole of the left
.kidney
Anemia/Thrombocytopenia:
-Hematology following
-Fe studies notable for TIBC low, otherwise normal
-LDH high, Haptoglobin pending, retic ct low
-folate B12 normal
-total and indirect bili high
-s/p 2U pRBCs, 2U plts. Transfuse plts today.
-s/p BMBx today
-suspect hemolytic anemia; Ahmet TS 13, antiplatelet antibody pending
-pt with low grade temp 06/17/23 likely related to transfusion
SCOTTY: resolved with pRBCs
Hyponatremia, mild
FULL/SCDs
Anticipated Discharge: 24 - 48 hours
Subjective/Interval History
-
Date of Service: June 20, 2023
Denies CP/SOB.
Objective Data
-
Labs:
Laboratory Results
06/20/23
08:05
WBC 5.6
Hgb 8.4 L
Hct 24.5 L
Plt Count 8 L*
Sodium 134 L
Potassium 4.9
Chloride 105
Carbon Dioxide 24
BUN 26 H
Creatinine 1.1
Glucose 100 H
Calcium 8.8
Total Bilirubin 1.7 H
AST 35
ALT 50
Alkaline Phosphatase 104
Vital Signs:
Vital Signs
Temp Pulse Resp BP Pulse Ox
98.2 F 69 18 113/77 99
06/20/23 10:26 06/20/23 12:29 06/20/23 12:29 06/20/23 12:29 06/20/23 12:29
I&O
06/19/23 06/20/23 06/21/23
06:59 06:59 06:59
Intake Total 1080 / 1080 1156 / 1156 50 / 50
Balance 1080 / 1080 1156 / 1156 50 / 50
[2023-06-20 13:47] LABS: Haptoglobin 153 mg/dL (30-200)
--- NOTE | 2023-06-20 14:58 | PN.IRAD.UPD ---
Update Note - IRAD
- -
Removed tipstop dressing from BMB site and replaced with a primapore.
Ralph SMITH(R)()
[2023-06-20] MEDS: TYLENOL 650 MG PO (20:40)
[2023-06-21] VITALS (8 sets, daily range): BP systolic 104–125; BP diastolic 60–81; BMI 21.8
[2023-06-21] MEDS: PROTONIX 40 MG PO (07:24)
--- NOTE | 2023-06-21 09:24 | W.PN.HOSP.TC ---
Addendum entered and electronically signed by Gaurang Lozano MD 06/21/23 12:10:
SCOTTY
Original Note:
Today's Communication/Plan
-
see bold
Assessment / Plan
Assessment / Plan
Gen: NAD, AAOx3.
Eyes: EOMI, PERRLA, no scleral icterus.
Neck: supple.
CV: remains RRR, +S1/S2, no m/r/g.
Resp: remains CTAB, no rales, wheezes, or rhonchi.
Abd: remains +BS, soft, NT, ND
Skin: No rashes.
Neuro: CN 2-12 intact, non-focal.
Psych: Normal mood and affect.
06/18/23 08:26 Blood/Venous Blood Culture - Preliminary
No Growth in 72 hours- Final report to follow
06/18/23 08:08 Blood/Venous Blood Culture - Preliminary
No Growth in 72 hours- Final report to follow
CT C/A/P: No evidence of malignancy, metastasis or adenopathy in the chest abdomen or pelvis. Splenomegaly with splenic length of 14.5 cm. Mild subpleural emphysematous changes at both lung apices. 5mm exophytic cyst at the lower pole of the left
kidney
Anemia/Thrombocytopenia:
-Hematology following
-Fe studies notable for TIBC low, otherwise normal
-LDH high, Haptoglobin pending, retic ct low normal
-folate B12 normal
-total and indirect bili high
-D-dimer 0.72, fibrinogen 327
-s/p 2U pRBCs, 3U plts.
-s/p BMBx 06/20/23
-less likely hemolytic anemia with retic ct 0.4
-[id number], antiplatelet antibody pending
-pt with low grade temp 06/17/23 likely related to transfusion
SCOTTY: resolved with pRBCs
Hyponatremia, mild
FULL/SCDs
Anticipated Discharge: 24 - 48 hours
Subjective/Interval History
-
Date of Service: June 21, 2023
Denies CP/SOB/bleeding.
Objective Data
-
Labs:
Laboratory Results
06/21/23
09:23
WBC Pending
Hgb Pending
Hct Pending
Plt Count Pending
Sodium Pending
Potassium Pending
Chloride Pending
Carbon Dioxide Pending
BUN Pending
Creatinine Pending
Glucose Pending
Calcium Pending
Vital Signs:
Vital Signs
Temp Pulse Resp BP Pulse Ox
98.4 F 78 20 104/66 98
06/21/23 07:30 06/21/23 07:30 06/21/23 07:30 06/21/23 07:30 06/21/23 07:30
I&O
06/20/23 06/21/23 06/22/23
06:59 06:59 06:59
Intake Total 1156 / 1156 1477 / 1477
Balance 1156 / 1156 1477 / 1477
[2023-06-21 09:26] LABS: Platelet Antibody, Direct IgG Negative (Negative); Platelet Antibody, Direct IgM Positive (Negative)
[2023-06-21 10:28] LABS: Hematocrit 22.3 % (39.0-52.0); Mean Corp Hgb Conc. 35.9 g/dL (33.0-37.0); Mean Corpuscular Hgb 30.1 pg (27.0-31.0); Mean Corpuscular Volume 83.8 fL (80.0-94.0); Mean Platelet Volume 9.2 fL (7.4-10.4); Red Blood Cell Count 2.66 10^6/uL (4.70-6.10); Red Cell Dist. Width 13.1 % (11.5-14.5); White Blood Cell Count 5.3 10^3/uL (4.8-10.8)
[2023-06-21 10:33] LABS: Platelet Count 13 10^3/uL (130-400)
[2023-06-21 10:41] LABS: Blood Urea Nitrogen 25 mg/dl (9-20); Calcium 8.9 mg/dl (8.4-10.2); Carbon Dioxide 27 mmol/L (22-30); Chloride 101 mmol/L (98-107); Estimated Creatinine Clearance 60 ml/min; Glucose 116 mg/dl (70-99); Potassium 4.7 mmol/L (3.5-5.1); Sodium 137 mmol/L (135-145); eGFR > 60.00
--- NOTE | 2023-06-21 11:00 | PN.CDI ---
CDI
- -
CDI:
Physician Documentation Request
Admit Date: 06/17/23 16:27
Dear Doctor Blake,
Patient admitted for anemia/thrombocytopenia.
Laboratory Tests
06/17/23 06/19/23 06/21/23
13:32 07:38 10:15
Creatinine 1.4 H 1.2 1.1
The purpose of this query is not to question medical judgement, but to ensure the accuracy of the conditions reported for your patient.
There is either a lack of clinical support for this condition in the current medical record, or there is a lack of recognized standard criteria to support the condition.
Criteria for SCOTTY*
1 Increase in serum creatinine by > or = to 0.3 mg/dL (> or = to 26.5 micromol/L) within 48 hours, OR
2 Increase in serum creatinine to > or = to 1.5 times baseline, which is known or presumed to have occurred within 7 days, OR
3 Urine volume < 0.5 nL/kg/hour for six hours
The request is for one of the following:
- Additional documentation to support the condition. Indicate if this is in lieu of what may be considered standard criteria, and/or support why the standard criteria may not be present for this patient.
- A more appropriate diagnosis, reflecting the patient's condition
- Diagnosis SCOTTY remains a known or suspected condition for this patient and is further supported by (include additional documentation in the medical record)
- Diagnosis SCOTTY has been ruled out and a more appropriate diagnosis for this patient's condition is .
- Other (please specify)
Use of terms such as suspected, likely, concern for, or probable (associated with a specific diagnosis that is being evaluated, monitored, or treated as if it exists) are acceptable and can be coded in the inpatient setting, when documented at the
time of discharge.
Thank you,
Vicki Boland RN, BSN
CDI Specialist
Available via [place] text
Please use your independent medical judgment in providing your response.
--- NOTE | 2023-06-21 12:07 | W.PN.ONC ---
Today's Communication / Plan
-
-s/p marrow yesterday
-await additional stains today as to preliminary diagnosis
-transfuse plts
Impression
Impression
- Severe thrombocytopenia
- Normocytic Anemia
- Weight loss, night sweats
- hx of tobacco use
- Acute ANTON/SOB
- Fatigue/weakness
Plan
Plan
1. Anemia/ thrombocytopenia -
-s/p marrow yesterday w/ bone marrow slides demonstrating some predominance of early myeloid precursors
-await additional stains
-transfuse additional plts today
Subjective/Objective
Subjective/Objective
feels decent - no fevers - no bleeding
Vital Signs:
Vital Signs
Temp Pulse Resp BP Pulse Ox
98.0 F 71 20 120/71 100
06/21/23 11:18 06/21/23 11:18 06/21/23 11:18 06/21/23 11:18 06/21/23 11:18
Lab Results:
Laboratory Data
WBC 5.3 10^3/uL (4.8-10.8) 06/21/23 10:15
Hgb 8.0 g/dL (13.0-18.0) L 06/21/23 10:15
Plt Count 13 10^3/uL (130-400) L* D 06/21/23 10:15
PT 16.5 Sec (11.4-14.6) H 06/18/23 07:25
INR 1.35 06/18/23 07:25
APTT 37.1 Sec (23.4-35.0) H 06/17/23 14:51
eGFR > 60.00 06/21/23 10:15
Exam: unchanged
--- NOTE | 2023-06-21 14:08 | CM ---
Patient for potential transfer to [facility] pending physician note. Patient and aware. Patient for transfer via wheelchair van per physician. CM will continue to follow for discharge planning needs.
Plan; pending transfer to [place]
[2023-06-22 06:00] VITALS: BMI 21.7
--- NOTE | 2023-06-22 06:51 | W.PN.ONC2 ---
Addendum entered and electronically signed by Venkat Cabrera MD 06/22/23 09:12:
Spoke with [facility] attending pony trimmer - Dr. Susan Del Valle.
Forwarded her his demographic info.
They will get him in early next week.
If bleeding or fever >> to [facility].
Otherwise, stable for D/C home today from my perspective.
PLT = 14 and stable.
Original Note:
Today's Communication / Plan
-
F/U on today's CBC. I feel he can be discharged home with close outpatient follow up.
Especially as minimal improvement with PLT transfusions x 4, they might want to admit him for inpatient induction but probably better to do as outpatient than wait for hosp-hosp transfer.
On Saturday we can see if we can get him scheduled for evaluation at [facility].
Impression
Impression
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
Severe thrombocytopenia
Plan
Plan
1. Anemia/ thrombocytopenia -
s/p marrow 06/19 prelim bone marrow slides demonstrating 17% blasts
This is below threshold for AML although with dry tap we could be artificially low blast count.
Await CBC suspect as he is asymptomatic if counts reasonable, coordinate outpatient Heme Onc F/U with both [facility] and [facility] team
Subjective/Objective
Chief Complaint
Heme Onc F/U
Subjective
No complaints. No fever or bleeding.
Vital Signs:
Vital Signs
Temp Pulse Resp BP Pulse Ox
98.0 F 64 16 113/62 100
06/21/23 23:00 06/21/23 23:00 06/21/23 23:00 06/21/23 23:00 06/21/23 23:00
Lab Results:
Laboratory Data
WBC 5.3 10^3/uL (4.8-10.8) 06/21/23 10:15
Hgb 8.0 g/dL (13.0-18.0) L 06/21/23 10:15
Plt Count 13 10^3/uL (130-400) L* D 06/21/23 10:15
PT 16.5 Sec (11.4-14.6) H 06/18/23 07:25
INR 1.35 06/18/23 07:25
APTT 37.1 Sec (23.4-35.0) H 06/17/23 14:51
eGFR > 60.00 06/21/23 10:15
Prelim BMBx: 17% blasts c/w MDS with excess blasts (MDS-EB-2), with 10% to 19% blasts in the bone marrow. Dry tap.
Physical Exam
HEENT: No Jaundice
Cardiology: S1 and S2
Pulmonary: Clear
GI: Soft
Extremities: No C/C/E
[2023-06-22 07:00] VITALS: BP 115/72
[2023-06-22 07:32] LABS: Hematocrit 22.8 % (39.0-52.0); Hemoglobin 7.9 g/dL (13.0-18.0); Mean Corp Hgb Conc. 34.6 g/dL (33.0-37.0); Mean Corpuscular Hgb 29.5 pg (27.0-31.0); Mean Corpuscular Volume 85.1 fL (80.0-94.0); Mean Platelet Volume 8.4 fL (7.4-10.4); Red Blood Cell Count 2.68 10^6/uL (4.70-6.10); Red Cell Dist. Width 13.2 % (11.5-14.5); White Blood Cell Count 5.3 10^3/uL (4.8-10.8)
[2023-06-22 07:35] LABS: Platelet Count 14 10^3/uL (130-400)
[2023-06-22] MEDS: PROTONIX 40 MG PO (07:55)
[2023-06-22 08:10] LABS: Blood Urea Nitrogen 24 mg/dl (9-20); Carbon Dioxide 26 mmol/L (22-30); Chloride 102 mmol/L (98-107); Estimated Creatinine Clearance 60 ml/min; Glucose 100 mg/dl (70-99); Potassium 4.8 mmol/L (3.5-5.1); Sodium 138 mmol/L (135-145); eGFR > 60.00
--- NOTE | 2023-06-22 13:28 | W.PN.HOSP.TC ---
Today's Communication/Plan
-
dc to home
Assessment / Plan
Assessment / Plan
06/18/23 08:26 Blood/Venous Blood Culture - Preliminary
No Growth in 72 hours- Final report to follow
06/18/23 08:08 Blood/Venous Blood Culture - Preliminary
No Growth in 72 hours- Final report to follow
CT C/A/P: No evidence of malignancy, metastasis or adenopathy in the chest abdomen or pelvis. Splenomegaly with splenic length of 14.5 cm. Mild subpleural emphysematous changes at both lung apices. 5mm exophytic cyst at the lower pole of the left
kidney
Anemia/Thrombocytopenia:
-Hematology following. Input of Dr. Cabrera appreciated
concern that this represents acute leukemia and plan is to follow up with [facility] Hematology [facility]
-Fe studies notable for TIBC low, otherwise normal
-LDH high, Haptoglobin pending, retic ct low normal
-folate B12 normal
-total and indirect bili high
-D-dimer 0.72, fibrinogen 327
-s/p 2U pRBCs, 3U plts.
-s/p BMBx 06/20/23
-less likely hemolytic anemia with retic ct 0.4
-ErnoBW10, antiplatelet antibody pending
-pt with low grade temp 06/17/23 likely related to transfusion
SCOTTY: resolved with pRBCs
Hyponatremia, mild
cleared by Dr. Cabrera to be discharged
FULL/SCDs
see dictated noteMore than 30 minutes spent in discharge including
Final examination of the patient
Summarizing hospital stay
Instructions for continuing care to all relevant caregivers
Preparation of discharge records, prescriptions, and referral forms
Total time spent (in minutes): 45
Anticipated Discharge: Today
Subjective/Interval History
-
Date of Service: June 22, 2023
Awake, alert, conversant
Objective Data
-
Labs:
Laboratory Results
06/22/23
07:04
WBC 5.3
Hgb 7.9 L
Hct 22.8 L
Plt Count 14 L*
Sodium 138
Potassium 4.8
Chloride 102
Carbon Dioxide 26
BUN 24 H
Creatinine 1.1
Glucose 100 H
Calcium 9.0
Vital Signs:
Vital Signs
Temp Pulse Resp BP Pulse Ox
98.2 F 65 14 115/72 99
06/22/23 07:00 06/22/23 07:00 06/22/23 07:00 06/22/23 07:00 06/22/23 07:00
I&O
06/21/23 06/22/23 06/23/23
06:59 06:59 06:59
Intake Total 1477 / 1477 1228 / 1228
Balance 1477 / 1477 1228 / 1228
Review of Systems
-
History Source: Patient and Family ( Baylee at bedside and at computer 1:1)
Constitutional: Denies Fever
EENT: Reports No Symptoms Reported
Respiratory: Reports No Symptoms
Cardiac: Reports No Symptoms
Abdomen/GI: Reports No Symptoms
Physical Exam
-
General: Well Developed, Well Nourished and No Apparent Distress
HEENT: Normocephalic, Atraumatic and Moist Mucous Membranes
Respiratory: Clear to Auscultation; Negative Wheezes, Rales or Rhonchi
Cardiac: Regular Rhythm and S1/S2
GI: Soft, Nontender and Nondistended
Musculoskeletal: No Clubbing, No Cyanosis and No Edema
Neuro: Awake, Alert and Oriented
--- NOTE | 2023-06-22 14:08 | W.DS.TRANS ---
DC Summary - Lace Weaver
-
Discharge Instructions:
Discharge Diagnosis/Procedures Thrombocytopenia
Diet Regular
Activity No strenuous activity
Additional Activity avoid crowds
Driving Restrictions Not until seen by your Dr
Bathing Restrictions None
Instructions:
Stand-Alone Forms:
Changes to Home Medications: No
Discharge Medications:
DC Medications w/original date entered in [employer]
No Meds [No Current Medications] 06/17/23
Home Medication Changes
Pending Results: Yes
Additional Pending Results:
final bone marrow biopsy results
--- NOTE | 2023-06-22 14:26 | CM ---
Plan: d/c home no needs.
== END 2023-06-22 14:14 | disposition home or self-care (01) | DRG 813 ==
LOC: 4 WEST ACU 16:27
PROVIDERS: Emergency Medicine; Internal Medicine; Physician Assistant; Physician Assistant Medical; Radiology Vascular & Interventional Radiology; ADMITTING PHYSICIAN Internal Medicine; ATTENDING PHYSICIAN Internal Medicine; CONSULT PHYSICIAN Internal Medicine Hematology & Oncology; EMERGENCY PHYSICIAN Emergency Medicine; FAMILY PHYSICIAN Family Medicine
PROC: 30233R1 Transfusion of Nonautologous Platelets into Peripheral Vein, Percutaneous Approach (ICD-10-PCS; 2023-06-17)
PROC: 30233N1 Transfusion of Nonautologous Red Blood Cells into Peripheral Vein, Percutaneous Approach (ICD-10-PCS; 2023-06-17)
PROC: 079T3ZX Drainage of Bone Marrow, Percutaneous Approach, Diagnostic (ICD-10-PCS; 2023-06-20)
PROC: 07DR3ZX Extraction of Iliac Bone Marrow, Percutaneous Approach, Diagnostic (ICD-10-PCS; 2023-06-20)
DX: D69.6 Thrombocytopenia, unspecified (principal); N17.9 Acute kidney failure, unspecified; E87.1 Hypo-osmolality and hyponatremia; D64.9 Anemia, unspecified; F17.210 Nicotine dependence, cigarettes, uncomplicated; E86.9 Volume depletion, unspecified
CPT/HCPCS: 88305; 88311; 88312; 36430; 38221; 71046; 71260; 74177; 77012; 80048; 80053; 81003; 81015; 82248; 82607; 82728; 82746; 83010; 83540; 83550; 83615; 83735; 84443; 84484; 85025; 85027; 85045; 85379; 85384; 85610; 85730; 86023; 86850; 86900; 86901; 86920; 87040; 88313; 88341; 88342; 93005; 96374; 99291; P9016; P9073; Q9967

== ENCOUNTER 2024-07-06 03:34 | Emergency (ER) | payer OTHER, SELFPAY ==
[2024-07-06 03:36] VITALS: BP 138/88
--- NOTE | 2024-07-06 04:35 | ED.GENMED ---
History of Present Illness
General
Chief Complaint: Back Pain
Source: patient and spouse
Time Seen by Provider: 07/06/24 04:14
Nursing documentation reviewed up to this point in time: agreed with
History of Present Illness
History of Present Illness:
Pleasant 54-year-old presents emergency department with acute on chronic low back pain. Patient is on palliative care. He has AML. He came in because his back pain worsened. He is due to see his oncologist in [place] this morning at 9 AM.
He is here for dose of pain medication because he does not feel he could tolerate the trip down to the [facility]. Patient took Flexeril and Tylenol with minimal relief.
Past History
Past History
ED Past Medical History: None
ED Past Surgical History: None
Review of Systems
Review of Systems
Allergies reviewed?: Yes
Other source history: family
All Other Systems: ROS reviewed and negative except as documented in HPI and ROS
Constitutional: Reports no symptoms
EENT: Reports no symptoms
Respiratory: Reports no symptoms
Cardiac: Reports no symptoms
ABD/GI: Reports no symptoms
: Reports no symptoms
Musculoskeletal: Reports back pain
Skin: Reports no symptoms
Neurological: Reports no symptoms
Endocrine: Reports no symptoms
Hematologic/Lymphatic: Reports no symptoms
Psychiatric: Reports no symptoms
Phy Exam
General Physical Exam
General Presentation: moderate distress
General age: appears older than age
General Skin: warm, dry and pale
General Habitus: debilitated and frail
General Mental: alert
General Hydration: appears well hydrated
Eye Exam
Eye Exam: PERRL and EOMI
Cardiovascular Exam
Cardiovascular Exam: regular rate/rhythm and tachycardia
Pulmonary Exam
Pulmonary Exam: no respiratory distress and no cough
Neurological Exam
Neurological Exam: alert, oriented x3 and speech normal
Musculoskeletal Exam
Musculoskeletal Exam: full ROM
Skin Exam
Skin Exam: pallor
Psychiatric Exam
Psychiatric Exam: normal mood/affect
Course
Orders/Labs/Results
Orders:
Orders
07/06/24 04:29
Chest X-ray Portable [CR Chest Portable - 1 View] Urgent
Comment:
Reason For Exam: confirm PICC placement for iv administration
Reason Study Needs to be Portable: Unable to Transport
07/06/24 05:03
Morphine Sulfate 4 mg IV NOW STA
Ondansetron Injectable [Zofran] 4 mg IV NOW STA
PICC Line As Directed
Comment: ok to use
Vital Signs
Initial and Last Documented VS:
Initial Vital Signs
Temp Pulse Resp BP Pulse Ox
97.8 F 104 22 138/88 98
07/06/24 03:36 07/06/24 03:36 07/06/24 03:36 07/06/24 03:36 07/06/24 03:36
Last Documented Vital Signs
Temp Pulse Resp BP Pulse Ox
97.8 F 102 16 117/77 98
07/06/24 03:36 07/06/24 05:08 07/06/24 05:08 07/06/24 05:08 07/06/24 05:08
*Critical Care Note
Total Time (30-74mins, 75-104mins- exclusive of procedures): Not Applicable
Update Note
Update Note:
Patient states that he is feeling much better with the morphine. At this time he wishes to be discharged. He asked if he could stay until he has to leave for the [facility] to keep his oncology appointment at [place]. After speaking with the nurse who
feels this is a reasonable request.
ED Attending Note
-
Portions of this chart may have been created with voice recognition software.� Occasional wrong word or��sound alike� substitutions may have occurred due to the inherent limitations of voice recognition software.
Discharge Plan
Departure
Patient Disposition: Home (Routine Discharge)
Date of Disposition: 07/06/24
Time of Disposition: 05:30
Patient with high blood pressure during this ER visit?: No
Condition: Good
Discharge Problem:
Acute exacerbation of chronic low back pain
Prescriptions:
No Action
multivitamin Tablet
1 tab PO DAILY
prednisone 5 mg Tablet
15 mg PO DAILY
prochlorperazine maleate [Compazine] 10 mg Tablet
10 mg PO Q6H PRN (Reason: nausea/vomiting)
sulfamethoxazole-trimethoprim [Bactrim DS] 800-160 mg Tablet
1 tab PO MOWEFR
acyclovir 800 mg Tablet
800 mg PO BID
ondansetron 8 mg Tablet,Disintegrating
8 mg PO Q8H PRN (Reason: nausea)
lorazepam 0.5 mg Tablet
0.5 mg PO Q6H PRN (Reason: anxiety)
lansoprazole 30 mg Capsule,Delayed Release(Dr/Ec)
30 mg PO DAILY
lidocaine 5 % Adhesive Patch,Medicated
1 patch TOPICAL DAILY
levofloxacin 500 mg Tablet
500 mg PO DAILY
voriconazole 50 mg Tablet
150 mg PO BID
cyclobenzaprine 5 mg Tablet
5 mg PO TID PRN (Reason: muscle spasm)
ursodiol 500 mg Tablet
500 mg PO Q12H
cholecalciferol (vitamin D3) [Vitamin D3] 25 mcg (1,000 unit) Tablet
25 mcg PO DAILY
tranexamic acid 650 mg Tablet
1,300 mg PO Q12H
ruxolitinib 10 mg Tablet
10 mg PO Q12H
venetoclax 100 mg Tablet
100 mg PO HS
Rx Instructions:
until 07/09/24
Fish Oil
1 cap PO DAILY
Patient Comments:
does not know mg
magnesium
1 tab PO HS
Patient Comments:
does not know mg
Referrals:
Anthony Barcenas MD [Family Provider] -
Interventions
Interventions:
*Risk Screen - Suicide Last Done: 07/06/24 04:38
*General Assessment Last Done: 07/06/24 04:38
*Neglect/Abuse Screening Last Done: 07/06/24 04:38
*ED COVID-19 Vaccine History Last Done: 07/06/24 04:38
ED-Musculoskeletal Assessment Last Done: 07/06/24 04:38
Discharge Date and Time
Print Language: BELARUSIAN
[2024-07-06 04:38] VITALS: BMI 22.2
[2024-07-06 05:08] VITALS: BP 117/77
[2024-07-06] MEDS: ZOFRAN 4 MG IV (05:10)
[2024-07-06] MEDS: MORPHINE SULFATE 4 MG IV (05:13)
== END 2024-07-06 06:49 | disposition home or self-care (01) ==
LOC: EMR 03:34
PROVIDERS: EMERGENCY PHYSICIAN Student in an Organized Health Care Education/Training Program; FAMILY PHYSICIAN Family Medicine
DX: G89.29 Other chronic pain (principal); M54.50 Low back pain, unspecified; C92.00 Acute myeloblastic leukemia, not having achieved remission
CPT/HCPCS: 99284; 96374; 96375; 71045

== ENCOUNTER 2024-07-16 10:31 | Inpatient (IN) | payer OTHER, SELFPAY ==
[2024-07-16 07:42] VITALS: BP 109/74
--- NOTE | 2024-07-16 08:20 | ED.GENMED ---
History of Present Illness
General
Chief Complaint: Abdominal Symptoms
Source: patient
Exam Limitations: none
Time Seen by Provider: 07/16/24 08:05
History of Present Illness
History of Present Illness:
54-year-old male with history of AML presents from home with increased abdominal pain jaundice and ongoing dark stools. He had episode of dark vomit yesterday. He was seen by his oncology team yesterday and received a unit of blood and 2 units of
platelets. They had long discussion yesterday between the the patient and the oncology provider about potentially transitioning to hospice care. Upon entry into the room, the PAEileen from his oncology team at [facility] to spoke with me. They
are beyond ability to help with the state of his cancer. There is a consideration at this time for home hospice. He has been taking oxycodone without significant relief. They are not looking for any further imaging studies.
Past History
Past History
ED Past Medical History: None
ED Past Surgical History: None
Phy Exam
Physical Exam
Physical Exam:
General: Cachectic ill-appearing male increased work of breathing
HEENT normocephalic mucosa dry
Heart: Tachycardic but regular
Lungs: Clear
Abdomen somewhat firm diffusely tender mild guarding
Extremities: No cyanosis but there is edema
Skin is pale and jaundice
Neurologic exam: Slow to respond to questions but eventually does answer them appropriately.
Course
Orders/Labs/Results
Orders:
Orders
07/16/24 08:18
CR Chest Portable - 1 View Urgent
Comment:
Reason For Exam: picc placement
Reason Study Needs to be Portable: Patient Unstable
07/16/24 08:19
HYDROmorphone [Dilaudid] 0.5 mg IV NOW STA
Ondansetron Injectable [Zofran] 4 mg IV NOW STA
07/16/24 08:24
FentaNYL 50 MCG/HR PATCH [Duragesic 50 Mcg/Hr Patch] 1 patch TRANSDERM NOW STA
Fentanyl Patch Confirmation BID@[id number]
07/16/24 08:30
REMOVE fentaNYL PATCH [Remove Duragesic Patch] See Dose Instructions REMOVE Q72H
07/16/24 08:36
Case Management Consult ONCE
Case Management Consult: Hospice
Hospice: Evaluation and treat
07/16/24 08:39
Complete Blood Count/With Diff Urgent
Comprehensive Metabolic Panel Urgent
Manual Differential Urgent
07/16/24 09:22
HYDROmorphone [Dilaudid] 1 mg IV NOW STA
Abnormal Lab Results
07/16/24
08:39
WBC 2.8 L 10^3/uL
(4.8-10.8)
RBC 2.98 L 10^6/uL
(4.70-6.10)
Hgb 8.5 L g/dL
(13.0-18.0)
Hct 23.6 L %
(39.0-52.0)
MCV 79.2 L fL
(80.0-94.0)
RDW 17.4 H %
(11.5-14.5)
Potassium 5.4 H mmol/L
(3.5-5.1)
Carbon Dioxide 21 L mmol/L
(22-30)
BUN 88 H mg/dl
(9-20)
Creatinine 1.7 H mg/dL
(0.7-1.3)
Glucose 39 L* mg/dl
(70-99)
Calcium 11.6 H mg/dl
(8.4-10.2)
Total Bilirubin 15.9 H mg/dl
(0.2-1.3)
AST 166 H U/L
(17-59)
ALT 98 H U/L
(0-50)
Alkaline Phosphatase 186 H U/L
(38-126)
Total Protein 5.3 L g/dl
(6.3-8.2)
Albumin 3.1 L g/dl
(3.5-5.0)
07/16/24 08:39
07/16/24 08:39
Vital Signs
Initial and Last Documented VS:
Initial Vital Signs
Temp Pulse Resp BP Pulse Ox
97.9 F 108 18 109/74 87
07/16/24 07:42 07/16/24 07:42 07/16/24 07:42 07/16/24 07:42 07/16/24 07:42
Last Documented Vital Signs
Temp Pulse Resp BP Pulse Ox
97.9 F 108 18 109/74 87
07/16/24 07:42 07/16/24 07:42 07/16/24 07:42 07/16/24 07:42 07/16/24 07:42
MDM/Problems Addressed
Differential Diagnosis Includes:
Patient in significant pain to the abdomen approaching end-of-life due to his AML. Spoke with oncology team. They are not interested in any further diagnostic workup. They are looking for comfort care. Case management has already been involved
for potential home hospice. Oxycodone not helping at home. Will try Dilaudid here. Will have to check chest x-ray to confirm port placement
*Critical Care Note
Total Time (30-74mins, 75-104mins- exclusive of procedures): Not Applicable
Update Note
Update Note:
8:38 AM: Spoke again with the patient's oncology team. They feel that he will pass in the next 1 to 2 days. They also are concerned that he is bleeding internally and this could be quite difficult to manage at home with home hospice. Will consult
case management for consideration of inpatient hospice. Dilaudid will be ordered as needed for pain.
Hospitalist made aware
ED Attending Note
-
Portions of this chart may have been created with voice recognition software.� Occasional wrong word or��sound alike� substitutions may have occurred due to the inherent limitations of voice recognition software.
Discharge Plan
Departure
Patient Disposition: Admit
Date of Disposition: 07/16/24
Time of Disposition: 09:30
Presentation/result/management discussed w/ accepting MD/DO: Hospitalist
Discharge Problem:
Abdominal pain
Prescriptions:
No Action
multivitamin Tablet
1 tab PO DAILY
prednisone 5 mg Tablet
15 mg PO DAILY
prochlorperazine maleate [Compazine] 10 mg Tablet
10 mg PO Q6H PRN (Reason: nausea/vomiting)
sulfamethoxazole-trimethoprim [Bactrim DS] 800-160 mg Tablet
1 tab PO MOWEFR
acyclovir 800 mg Tablet
800 mg PO BID
ondansetron 8 mg Tablet,Disintegrating
8 mg PO Q8H PRN (Reason: nausea)
lorazepam 0.5 mg Tablet
0.5 mg PO Q6H PRN (Reason: anxiety)
lansoprazole 30 mg Capsule,Delayed Release(Dr/Ec)
30 mg PO DAILY
lidocaine 5 % Adhesive Patch,Medicated
1 patch TOPICAL DAILY
levofloxacin 500 mg Tablet
500 mg PO DAILY
voriconazole 50 mg Tablet
150 mg PO BID
cyclobenzaprine 5 mg Tablet
5 mg PO TID PRN (Reason: muscle spasm)
ursodiol 500 mg Tablet
500 mg PO Q12H
cholecalciferol (vitamin D3) [Vitamin D3] 25 mcg (1,000 unit) Tablet
25 mcg PO DAILY
tranexamic acid 650 mg Tablet
1,300 mg PO Q12H
ruxolitinib 10 mg Tablet
10 mg PO Q12H
venetoclax 100 mg Tablet
100 mg PO HS
Rx Instructions:
until 07/09/24
Fish Oil
1 cap PO DAILY
Patient Comments:
does not know mg
magnesium
1 tab PO HS
Patient Comments:
does not know mg
Referrals:
Anthony Barcenas MD [Family Provider] -
Interventions
Interventions:
*Risk Screen - Suicide Last Done: 07/16/24 07:42
*General Assessment Last Done: 07/16/24 07:42
*Neglect/Abuse Screening Last Done: 07/16/24 07:42
*ED- Fall Risk Assessment Last Done: 07/16/24 07:42
Discharge Date and Time
Print Language: LATVIAN
[2024-07-16] MEDS: ZOFRAN 4 MG IV (08:39)
[2024-07-16] MEDS: DILAUDID 0.5 MG IV (08:39)
[2024-07-16 09:19] LABS: ALT (SGPT) 98 U/L (0-50); AST (SGOT) 166 U/L (17-59); Albumin 3.1 g/dl (3.5-5.0); Alkaline Phosphatase 186 U/L (38-126); Blood Urea Nitrogen 88 mg/dl (9-20); Calcium 11.6 mg/dl (8.4-10.2); Carbon Dioxide 21 mmol/L (22-30); Chloride 98 mmol/L (98-107); Glucose 39 mg/dl (70-99); Potassium 5.4 mmol/L (3.5-5.1); Sodium 136 mmol/L (135-145); Total Bilirubin 15.9 mg/dl (0.2-1.3); Total Protein 5.3 g/dl (6.3-8.2)
[2024-07-16] MEDS: DILAUDID 1 MG IV (09:26)
[2024-07-16 09:28] LABS: Band Neutrophils 0 % (0-3); Estimated Creatinine Clearance 36 ml/min; Hematocrit 23.6 % (39.0-52.0); Hemoglobin 8.5 g/dL (13.0-18.0); Lymphocytes 82 % (20-51); Mean Corpuscular Hgb 28.5 pg (27.0-31.0); Mean Corpuscular Volume 79.2 fL (80.0-94.0); Monocytes 8 % (2-9); Normal RBC Morphology No; Nucleated Red Blood Cells 245 (-); Platelets Checked Yes; Red Blood Cell Count 2.98 10^6/uL (4.70-6.10); Red Cell Dist. Width 17.4 % (11.5-14.5); Segmented Neutrophils 10 % (42-75); White Blood Cell Count 2.8 10^3/uL (4.8-10.8); eGFR 47.61
[2024-07-16 09:29] LABS: Anisocytosis 1+; Polychromasia Slight; Target Cells 2+; Total Cells Counted 100
[2024-07-16 09:30] LABS: Absolute Neutrophils -Man Diff 0.2 10^3/uL (1.4-6.5); Platelet Count 6 10^3/uL (130-400)
--- NOTE | 2024-07-16 09:33 | HPS.HSE ---
Family Physician
-
Family Physician: Anthony Barcenas
Chief Complaint
-
abdominal pain, jaundice, and dark stools
History of Present Illness
Mr. Ralph Jewell is a 54 yo man with hx AML (diagnosed 06/22, seen at [facility]) with on-going talks of home hospice presents to the ER with abdominal pain, jaundice and dark stools. 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 He received a unit PRBC and 2
units PLT yesterday. After discussions between ER, patient's Oncologist, and family decision has been made to admit to inpatient hospice here.
Patient seen sleeping post Dilaudid administration with family at bedside.
Medical History
Past Medical History
Past Medical History: Reports Cancer (AML)
Past Surgical History: Reports Other
Social History
Tobacco: Non-smoker
Alcohol: None
Family History
Family History: Not pertinent
Allergies / Home Medications
Allergies reflects when Allergies were last updated in [employer].
Home Medications with original date entered in [employer]
Allergy/Medication List:
Allergies
Allergy/AdvReac Type Severity Reaction Status Date / Time
epinephrine Allergy Unknown Verified 07/06/24 03:39
procaine [From Novocain] Allergy Rash Verified 07/06/24 03:39
Home Medications
acyclovir 800 mg tablet 800 mg PO BID 07/06/24
cyclobenzaprine 5 mg tablet 5 mg PO TIDPRN PRN muscle spasm 07/06/24
lansoprazole 30 mg capsule,delayed release 30 mg PO DAILY 07/06/24
levofloxacin 500 mg tablet 500 mg PO DAILY terminal computer operator 07/06/24
lidocaine 5 % topical patch 1 patch topical DAILY 07/06/24
lorazepam 0.5 mg tablet 0.5 mg PO Q6HPRN PRN anxiety 07/06/24
ondansetron 8 mg disintegrating tablet 8 mg PO Q8HPRN PRN nausea 07/06/24
prednisone 5 mg tablet 20 mg PO DAILY 07/06/24
prochlorperazine maleate 10 mg tablet (Compazine) 10 mg PO Q6HPRN PRN nausea/vomiting 07/06/24
sulfamethoxazole 800 mg-trimethoprim 160 mg tablet (Bactrim DS) 1 tab PO MOWEFR 07/06/24
tranexamic acid 650 mg tablet 1,300 mg PO DAILY 07/06/24
ursodiol 500 mg tablet 500 mg PO Q12H 07/06/24
oxycodone 5 mg tablet 5 mg PO Q6HPRN PRN severe pain 07/16/24
polyethylene glycol 3350 17 gram oral powder packet (Miralax) 17 g PO DAILYPRN PRN constipation 07/16/24
posaconazole 100 mg tablet,delayed release (Noxafil) 300 mg PO DAILY 07/16/24
sennosides 8.6 mg tablet (senna) 8.6 mg PO BIDPRN PRN constipation 07/16/24
* med rec not complete
Review of Systems
-
History Source: Patient
A 12 point ROS was completed and negative except as noted: Yes
Physical Exam
Vital Signs
Vital Signs
Temp Pulse Resp BP Pulse Ox
97.9 F 108 18 109/74 87
07/16/24 07:42 07/16/24 07:42 07/16/24 07:42 07/16/24 07:42 07/16/24 07:42
Physical Exam
General: Other (sleeping with intermittent grimacing; moving extremities )
HEENT: PERRLA
Respiratory: No Wheezes
Cardiac: S1/S2 and Regular Rhythm
Neuro: Sedated
Psych: Calm
Laboratory Results
-
07/16/24 08:39
07/16/24 08:39
Laboratory Results
Total Bilirubin 15.9 mg/dl (0.2-1.3) H 07/16/24 08:39
AST 166 U/L (17-59) H 07/16/24 08:39
ALT 98 U/L (0-50) H 07/16/24 08:39
Alkaline Phosphatase 186 U/L (38-126) H 07/16/24 08:39
Data Reviewed
-
Diagnostic Radiology: Report Reviewed by me
Lab Data: Labs Reviewed by me
Impression/Plan
-
Mr. Ralph Jewell is a 54 yo man with hx AML (diagnosed 06/22, seen at [facility]) with on-going talks of home hospice presents to the ER with abdominal pain, jaundice and dark stools. 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 He received a unit PRBC and 2
units PLT yesterday.
Triage VS: T 97.9, P 108, RR 18, BP 109/74, SpO2 87%
LABS: WBC 2.8, Hg 8.5, PLT 6, Na 136, K+ 5.4, Cr 1.7, Glucose 39, Ca 11.6, T. Bili 15.9, AST 166, ALT 98, Alk Phos 186
ER spoke directly with patient's Oncology team at [facility]. It is felt that he will pass within the next 1-2 days, concern for internal bleeding. Decision made for inpatient hospice.
MAR: Fentanyl patch, Dilaudid 1mg IV x 1; 0.5mg IV x 1; Zofran 4mg IV x 1
Terminal AML
Pancytopenia
Hypoglycemia
Acute on Chronic pain
-decision made for inpatient hospice/comfort care
-admit to med/surg
-start IV morphine gtt, family in agreement
-IV ativan PRN
no DVT PPx
DNR
76 minutes spent on patient care
--- NOTE | 2024-07-16 09:35 | PHANOTE ---
med rec note- patient has [facility] discharge paperwork in room from 07/13/2024
--- NOTE | 2024-07-16 09:46 | EDRN ---
MD Thompson at bedside.
[2024-07-16] MEDS: MORPHINE 100 IV (10:03)
[2024-07-16] MEDS: MORPHINE SULFATE 2 MG IV ×3 (10:57→12:42)
--- NOTE | 2024-07-16 11:02 | EDRN ---
Patient experienced period of increased work of breathing. Morphine bolus provided.
[2024-07-16] MEDS: ROBINUL 0.2 MG IV (12:32)
--- NOTE | 2024-07-16 12:44 | HOSPNOTE ---
Met with family and emotional support provided. Patient will be admitted onto hospice services and remain inpatient. I spoke with spouse and children and offered support and explained the dying process and answered all questions. Admissions called
and requested a bed on [facility]. We will continue to follow and support.
[2024-07-16] MEDS: ATIVAN 1 MG IV (13:06)
--- NOTE | 2024-07-16 13:33 | CM ---
per Cm consult sent referral to hospice to meet family. Spoke to Rn who said physician has already assigned to inpatient hospice at . Vanessa saw and that continues to be plan.
--- NOTE | 2024-07-16 13:39 | W.PN.DEATH ---
Pronouncement of
-
Called to see patient to pronounce.
No spontaneous heart tones or respirations noted.
Patient not responsive to verbal stimuli.
Patient is pronounced .
Time of : 01:30
Date of : 07/16/24
Cause of : Acute Myeloid Leukemia
Family Notified: Yes
--- NOTE | 2024-07-16 13:44 | HOSPNOTE ---
Patient passed while here in the ED with family present. Spouse and children will be followed by hospice bereavement services. Dr Thompson came to pronounce. We will continue to support family, spouse has my number to call if needed.
--- NOTE | 2024-07-16 13:51 | W.DCSUMMARY ---
Discharge Summary
Discharge Data
Date of Admission: 07/16/24
Date of Discharge: 07/16/24
-
Pending Results: No
Hospital Course
Discharging Physician : Dr. Nithya Thompson
Date of 07/16/24; Time of 1:30 PM
Primary care physician : Dr. Anthony Barcenas
Cause of : Acute Myeloid Leukemia
Hospital Course :
Mr. Ralph Jewell is a 54 yo man with hx AML (diagnosed 06/22, seen at [facility]) presents to the ER with abdominal pain, jaundice and dark stools. 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 He received a unit PRBC and 2 units PLT yesterday. After
discussions between ER, patient's Oncologist, and family decision has been made to admit to inpatient hospice here. He was started on an IV Morphine infusion. Patient peacefully with family at bedside at 1:30 PM.
Important imaging findings :
Procedure findings :
Discharge Plan
-
Referrals:
Anthony Barcenas MD [Family Provider] -
Prescriptions:
No Action
prednisone 5 mg Tablet
20 mg PO DAILY
prochlorperazine maleate [Compazine] 10 mg Tablet
10 mg PO Q6HPRN PRN (Reason: nausea/vomiting)
sulfamethoxazole-trimethoprim [Bactrim DS] 800-160 mg Tablet
1 tab PO MOWEFR
acyclovir 800 mg Tablet
800 mg PO BID
ondansetron 8 mg Tablet,Disintegrating
8 mg PO Q8HPRN PRN (Reason: nausea)
lorazepam 0.5 mg Tablet
0.5 mg PO Q6HPRN PRN (Reason: anxiety)
lansoprazole 30 mg Capsule,Delayed Release(Dr/Ec)
30 mg PO DAILY
lidocaine 5 % Adhesive Patch,Medicated
1 patch TOPICAL DAILY
levofloxacin 500 mg Tablet
500 mg PO DAILY
cyclobenzaprine 5 mg Tablet
5 mg PO TIDPRN PRN (Reason: muscle spasm)
ursodiol 500 mg Tablet
500 mg PO Q12H
tranexamic acid 650 mg Tablet
1,300 mg PO DAILY
sennosides [senna] 8.6 mg Tablet
8.6 mg PO BIDPRN PRN (Reason: constipation)
polyethylene glycol 3350 [Miralax] 17 gram Powder In Packet
17 g PO DAILYPRN PRN (Reason: constipation)
oxycodone 5 mg Tablet
5 mg PO Q6HPRN PRN (Reason: severe pain)
posaconazole [Noxafil] 100 mg Tablet,Delayed Release (Dr/Ec)
300 mg PO DAILY
Discharge Date and Time
Print Language: MAORI
== END 2024-07-16 16:00 | disposition expired | DRG 951 ==
LOC: ED 10:31
PROVIDERS: Physician Assistant; Radiology Vascular & Interventional Radiology; ADMITTING PHYSICIAN Student in an Organized Health Care Education/Training Program; EMERGENCY PHYSICIAN Emergency Medicine; FAMILY PHYSICIAN Family Medicine
PROC: 02HV33Z Insertion of Infusion Device into Superior Vena Cava, Percutaneous Approach (ICD-10-PCS; 2024-07-16)
DX: Z51.5 Encounter for palliative care (principal); C92.00 Acute myeloblastic leukemia, not having achieved remission; D61.818 Other pancytopenia; R17 Unspecified jaundice; Z66 Do not resuscitate; E16.2 Hypoglycemia, unspecified; G89.3 Neoplasm related pain (acute) (chronic); Z79.899 Other long term (current) drug therapy
CPT/HCPCS: 71045; 80053; 85025; 96374; 96375; 96376; 99285